=== PATIENT | female | born 1975 | race Caucasian/White ===

== ENCOUNTER 2019-02-01 17:21 | Outpatient (CLI) | payer SELFPAY | END 2019-02-01 17:22 | disposition critical access hospital (66) | LOC: EMS 17:21 | PROVIDERS: ATTEND Surgery | DX: S89.92XA Unspecified injury of left lower leg, initial encounter (principal); W01.0XXA Fall on same level from slipping, tripping and stumbling without subsequent striking against object, initial encounter | CPT/HCPCS: A0425; A0429 ==

== ENCOUNTER 2019-02-01 17:25 | Emergency (ER) | payer OTHER ==
[2019-02-01 17:34] VITALS: BP 166/83
[2019-02-01] MEDS ORDERED: HYDROmorphone 1 MG/ML CARPUJECT IM STA ×2 (18:22→18:55)
--- NOTE | 2019-02-01 18:24 | ED Physician Documentation ---
PD HPI LOWER EXT INJURY - Stated complaint Stated Complaint: R KNEE PX - Chief complaint Chief Complaint: Ext Problem - History obtained from History obtained from: Patient - History of Present Illness PD HPI LOW EXT INJURY LOCATION: Right (43-year-old woman was finishing up at work, walking and tripped and impacted directly onto the knee on the floor. She has not tried to walk or bear weight. Pain is severe. No other injuries. No possibility of .) Review of Systems Constitutional: reports: Reviewed and negative Throat: reports: Reviewed and negative Cardiac: reports: Reviewed and negative Respiratory: reports: Reviewed and negative PD PAST MEDICAL HISTORY - Past Medical History Past Medical History: Yes Endocrine/Autoimmune: HyPERthyroidism GI: GERD - Present Medications Home Medications: Ambulatory Orders Medication Instructions Recorded Confirmed Oxycodone HCl/Acetaminophen 1 - 2 each PO Q6H PRN #14 tablet 02/01/19 [Percocet 5-325 mg Tablet] - Allergies Allergies/Adverse Reactions: Allergies Allergy/AdvReac Type Severity Reaction Status Date / Time cephalexin [From Keflex] Allergy Unknown Verified 02/01/19 17:36 Penicillins Allergy Anaphylaxis Verified 02/01/19 17:36 - Social History Does the pt smoke?: No Smoking Status: Never smoker Does the pt drink ETOH?: No Does the pt have substance abuse?: No - Immunizations Immunizations are current?: Yes - POLST Patient has POLST: No PD ED PE NORMAL - Vitals Vital signs reviewed: Yes - General General: Alert and oriented X 3, No acute distress - Extremities Extremities: Other (The right knee is significantly severely tender over both sides and especially the tibial plateau. Unable to check ligamentous testing on initial evaluation due to severe pain.) - Neuro Neuro: Alert and oriented X 3, Normal speech Results - Vitals Vitals: Vital Signs - 24 hr 02/01/19 17:30 Temperature 36.6 C Heart Rate 80 Respiratory 18 Rate Blood Pressure 166/83 H O2 Saturation 99 Oxygen O2 Source Room air - Rads (name of study) Xray R knee Radiology: EMP read contemporaneously (neg) CT R knee Radiology: See rad report PD MEDICAL DECISION MAKING - ED course ED course: Given the level of pain and morbid obesity I had a high suspicion for occult fracture despite the negative x-rays and a CT was performed With only evidence of a contusion. She was placed in a knee splint, advised to follow-up with Dr. Abreu if not better quickly. Departure - Departure Disposition: 01 Home, Self Care Clinical Impression: Contusion of right knee Qualifiers: Encounter type: initial encounter Qualified Code(s): S80.01XA - Contusion of right knee, initial encounter Condition: Good Record reviewed to determine appropriate education?: Yes Instructions: ED Sprain Knee Collateral Ligaments Follow-Up: Jaime Abreu MD [Provider Admit Priv/Credential] - Prescriptions: Oxycodone HCl/Acetaminophen [Percocet 5-325 mg Tablet] 1 - 2 each PO Q6H PRN #14 tablet PRN Reason: pain Comments: If not better in a week, follow-up with the sports medicine orthopedic surgeon for follow-up. You can wear the splint as needed when up and around but you do not need to wear it in bed or while showering. Do not drink or drive while taking prescription pain medication. You can take ibuprofen in addition to the oxycodone. Forms: Activity restrictions
--- NOTE | 2019-02-01 18:30 | XRAY Report ---
Reason: fall, R knee pain Procedure Date: 02/01/2019 Accession Number: [id number] / [id number] Procedure: XR - Knee 4 View RT CPT Code: FULL RESULT: EXAM: RIGHT KNEE RADIOGRAPHY EXAM DATE: 02/01/2019 05:56 PM. CLINICAL HISTORY: Fall, R knee pain. COMPARISON: None. TECHNIQUE: 4 views. FINDINGS: Bones: Normal. No fractures or bone lesions. Joints: Early patellar articular surface spurring. Medial greater than lateral knee joint spurring No effusion. No subluxations. Soft Tissues: Unremarkable IMPRESSION: Early degenerative change right knee without superimposed fracture, acute malalignment, or effusion. RADIA
[2019-02-01] MEDS ORDERED: KETOROLAC 60 MG/2 ML VIAL IM STA (18:55)
--- NOTE | 2019-02-01 19:25 | CT Report ---
Reason: knee inj, ? tibial plateau frx Procedure Date: 02/01/2019 Accession Number: [id number] / [id number] Procedure: CT - LOWER EXTREMITY WO - RT CPT Code: FULL RESULT: EXAM: RIGHT KNEE CT WITHOUT CONTRAST EXAM DATE: 02/01/2019 06:46 PM. CLINICAL HISTORY: Knee inj, ? Tibial plateau frx. Ground-level fall with right knee pain and swelling today. COMPARISON: KNEE 4 VIEW RT 02/01/2019 5:38 PM. TECHNIQUE: Thin-section axial images were acquired of the knee without contrast. Post-processing: Coronal and sagittal reformats. Other: None. In accordance with CT protocol optimization, one or more of the following dose reduction techniques were utilized for this exam: automated exposure control, adjustment of mA and/or KV based on patient size, or use of iterative reconstructive technique. FINDINGS: Bones: Mild spurring medial femoral condyle and medial tibial plateau. Moderate spurring lateral femoral condyle. Moderate spurring lateral patellar facet. Bony remodeling with some cortical cystic changes lateral patellar facet. Joints: Narrowing medial tibiofemoral compartment. Negative for lipohemarthrosis. Negative for increased joint fluid. Moderate narrowing lateral patellofemoral compartment. Musculature: Normal. No fatty atrophy. Other: The ACL is intact. The posterior cruciate ligaments without disruption. Medial collateral ligament and fibular collateral ligament are negative for disruption. Subcutaneous fluid or edema superficial to the patellar tendon and anterior proximal leg (sees image 169 series 3). Probable pretibial contusion or edema. IMPRESSION: 1. Negative for acute right knee fracture. 2. Moderate osteoarthritis lateral patellofemoral compartment. 3. Moderate osteoarthritis medial tibiofemoral compartment. Kellgren Keith grade 3. 4. Anterior proximal leg subcutaneous contusion or edema. RADIA
== END 2019-02-01 19:44 | disposition home or self-care (01) ==
LOC: EDUNIT# → ED 17:25
DX: S80.01XA Contusion of right knee, initial encounter (principal); W01.0XXA Fall on same level from slipping, tripping and stumbling without subsequent striking against object, initial encounter; Y93.01 Activity, walking, marching and hiking; Y99.0 Civilian activity done for income or pay; M17.11 Unilateral primary osteoarthritis, right knee; E66.01 Morbid (severe) obesity due to excess calories; Z68.41 Body mass index [BMI] 40.0-44.9, adult
CPT/HCPCS: 1040M; 73564; 73700; 96372; 99283; 99284; J1170

== ENCOUNTER 2019-05-23 07:54 | Outpatient (CLI) | payer BC ==
[2019-05-23 08:26] LABS: BASOPHILS % (AUTO) 0.6 %; EOSINOPHILS # (AUTO) 0.3 10^3/uL (0.0-0.7); EOSINOPHILS % (AUTO) 3.8 %; HGB - HEMOGLOBIN 13.6 g/dL (12.0-16.0); LYMPHOCYTES # (AUTO) 2.1 10^3/uL (1.5-3.5); LYMPHOCYTES % (AUTO) 32.3 %; MEAN CORPUSCULAR HEMOGLOBIN 28.8 pg (27.0-31.0); MEAN CORPUSCULAR HGB CONC 31.1 g/dL (32.0-36.0); MEAN CORPUSCULAR VOLUME 92.6 fL (81.0-99.0); MEAN PLATELET VOLUME 10.8 fL (7.9-10.8); MONOCYTES # (AUTO) 0.4 10^3/uL (0.0-1.0); MONOCYTES % (AUTO) 5.9 %; NEUTROPHILS # (AUTO) 3.7 10^3/uL (1.5-6.6); NEUTROPHILS % (AUTO) 57.1 %; PLT - PLATELET COUNT 237 10^3/uL (130-450); RED BLOOD COUNT 4.73 10^6/uL (4.20-5.40); RED CELL DISTRIBUTION WIDTH 14.5 % (12.0-15.0); WHITE BLOOD COUNT 6.6 x10^3/uL (4.8-10.8)
[2019-05-23 08:38] LABS: ALBUMIN 4.2 g/dL (3.2-5.5); ALBUMIN/GLOBULIN RATIO 1.3 (1.0-2.2); BILIRUBIN,TOTAL 0.5 mg/dL (0.2-1.0); CALCIUM 8.8 mg/dL (8.5-10.3); CREATININE 0.7 mg/dL (0.4-1.0); TOTAL PROTEIN 7.5 g/dL (6.7-8.2)
[2019-05-23 08:51] LABS: THYROID STIMULATING HORMONE 30.67 uIU/mL (0.34-5.60)
[2019-05-23 08:53] LABS: FREE T4 (FREE THYROXINE) 0.63 ng/dL (0.58-1.64)
[2019-05-23 08:55] LABS: FERRITIN 12.2 ng/mL (11.0-306.8)
[2019-05-23 14:24] LABS: HB2 TOTAL 13.5 g/dL; HEMOGLOBIN A1C 0.71 g/dL
[2019-05-25 12:32] LABS: HSV 1 IGG TYPE SPECIFIC AB <0.90 index; HSV 2 IGG TYPE SPECIFIC AB <0.90 index
== END 2019-05-23 07:55 | disposition home or self-care (01) ==
LOC: LAB 07:54
PROVIDERS: ATTEND Nurse Practitioner
DX: D64.9 Anemia, unspecified (principal); K21.9 Gastro-esophageal reflux disease without esophagitis; E05.90 Thyrotoxicosis, unspecified without thyrotoxic crisis or storm; R73.01 Impaired fasting glucose; Z11.3 Encounter for screening for infections with a predominantly sexual mode of transmission
CPT/HCPCS: 36415; 80053; 81599; 82728; 83036; 83540; 84439; 84443; 84466; 84481; 85025; 86695; 86696

== ENCOUNTER 2019-06-07 17:14 | Outpatient (CLI) | payer BC ==
--- NOTE | 2019-06-09 06:07 | Ultrasound Report ---
Reason: HYPERTHYROIDISM Procedure Date: 06/07/2019 Accession Number: [id number] / [id number] Procedure: US - Head or Neck Soft Tissue CPT Code: Final Report FULL RESULT: EXAM: THYROID ULTRASOUND EXAM DATE: 06/07/2019 05:50 PM. CLINICAL HISTORY: HYPERTHYROIDISM. COMPARISON: None. TECHNIQUE: Real time sonographic imaging of the thyroid was performed by the regional flatbed truck driver. Multiple account services representative static images were saved for review. FINDINGS: THYROID GLAND: Right Lobe: 4.7 x 1.8 x 2.2 cm, volume 9.6 cc. Diffusely heterogeneous without increased color signal/vascularity Right Lobe Nodules: None. Left Lobe: 4.5 x 1.7 x 2.0 cm, volume 7.8 cc. Diffusely heterogeneous without increased color signal/vascularity Left Lobe Nodules: Hyperechoic solid nodule in the inferior pole measures 0.5 x 0.5 x 0.6 cm, low suspicion sonographic pattern Isthmus: 1 cm AP. Isthmic Nodules: None. LYMPH NODES: No adenopathy demonstrated in the central or lateral compartment. OTHER: None. IMPRESSION: 1. Diffusely heterogeneous thyroid, suspect sequela of thyroiditis. 2. Low suspicion sonographic pattern nodule in the left thyroid lobe. One to two-year follow-up can be obtained. Management recommendations are based on 2015 [place] [employer] Management Guidelines for Adult Patients with Thyroid Nodules and Differentiated Thyroid Cancer. RADIA
== END 2019-06-07 17:15 | disposition home or self-care (01) ==
LOC: DI 17:14
PROVIDERS: ATTEND Nurse Practitioner
DX: E05.90 Thyrotoxicosis, unspecified without thyrotoxic crisis or storm (principal); E04.1 Nontoxic single thyroid nodule
CPT/HCPCS: 76536

== ENCOUNTER 2019-06-07 17:58 | Emergency (ER) | payer BC ==
[2019-06-07] MEDS ORDERED: diazePAM INJ 5 MG/ML SYRINGE IM STA (18:41)
[2019-06-07] MEDS ORDERED: DEXAMETHASONE 10 MG/ML VIAL IM STA (18:41)
[2019-06-07] MEDS ORDERED: KETOROLAC 60 MG/2 ML VIAL IM STA (18:41)
--- NOTE | 2019-06-07 18:49 | ED Physician Documentation ---
History of Present Illness - Stated complaint Stated Complaint: SHAKING,TINGLING,DIZZY - Chief complaint Chief Complaint: General - History obtained from History obtained from: Patient - History of Present Illness Timing: Today Pain level max: 7 Pain level now: 6 - Additonal information Additional information: 43-year-old female presents to the emergency department stating that she was getting an ultrasound of her thyroid and had her neck in an odd position on the pillow. She states that when she sat up she felt a sharp pain in the side of her neck and pain radiating down the left arm. She feels like the left arm is not working quite as well as usual either. States pain with any movement of her neck. No history of neck or back pain. No chest pain. No shortness of breath. No headache. Review of Systems Constitutional: denies: Fever, Chills Throat: denies: Sore throat Cardiac: denies: Chest pain / pressure Respiratory: denies: Cough GI: denies: Vomiting, Diarrhea Skin: denies: Rash Musculoskeletal: denies: Back pain Neurologic: denies: Confused, Altered mental status, LOC PD PAST MEDICAL HISTORY - Past Medical History Past Medical History: Yes Endocrine/Autoimmune: HyPERthyroidism GI: GERD - Present Medications Home Medications: Ambulatory Orders Medication Instructions Recorded Confirmed Oxycodone HCl/Acetaminophen 1 - 2 each PO Q6H PRN #14 tablet 02/01/19 [Percocet 5-325 mg Tablet] Meloxicam [Mobic] 15 mg PO DAILY PRN #20 tablet 06/07/19 diazePAM [Valium] 5 - 10 mg PO TID PRN #15 tablet 06/07/19 predniSONE [Deltasone] 10 mg PO [id number] #42 tab 06/07/19 - Allergies Allergies/Adverse Reactions: Allergies Allergy/AdvReac Type Severity Reaction Status Date / Time cephalexin [From Keflex] Allergy Unknown Verified 06/07/19 18:18 Penicillins Allergy Anaphylaxis Verified 06/07/19 18:18 - Social History Does the pt smoke?: No Smoking Status: Never smoker Does the pt drink ETOH?: No Does the pt have substance abuse?: No - Immunizations Immunizations are current?: Yes - POLST Patient has POLST: No PD ED PE NORMAL - Vitals Vital signs reviewed: Yes - General General: Alert and oriented X 3, No acute distress, Well developed/nourished - HEENT HEENT: PERRL, Moist mucous membranes - Neck Neck: Supple, no meningeal sign, Other (No midline tenderness to palpation. Paracervical spasm, left side of the neck. Reproduces her pain. Limited range of motion secondary to pain. She is holding her head straight and forward.) - Cardiac Cardiac: RRR, Strong equal pulses - Respiratory Respiratory: No respiratory distress, Clear bilaterally - Abdomen Abdomen: Soft, Non tender, Non distended - Derm Derm: Warm and dry - Extremities Extremities: No deformity - Neuro Neuro: Alert and oriented X 3 - Psych Psych: Normal mood, Normal affect Results - Vitals Vitals: Vital Signs - 24 hr 06/07/19 06/07/19 06/07/19 18:06 19:14 19:20 Temperature 36.8 C Heart Rate 77 71 Respiratory 18 16 17 Rate Blood Pressure 183/104 H 162/80 H O2 Saturation 97 99 06/07/19 06/07/19 19:24 19:25 Temperature 36.4 C L Heart Rate Respiratory 16 Rate Blood Pressure O2 Saturation Oxygen O2 Source Room air PD MEDICAL DECISION MAKING - ED course Complexity details: re-evaluated patient (After medication she is moving the neck well and ambulating well. Using the left arm freely.), considered differential, d/w patient, d/w family ED course: Patient with cervical muscle spasm. No signs of stroke. No evidence of carotid dissection. No bruits. Improved with Valium, Toradol and Decadron. Will encourage continued range of motion of the neck. Will place on medications for home. Patient counseled regarding signs and symptoms for which I believe and urgent re-evaluation would be necessary. Patient with good understanding of and agreement to plan and is comfortable going home at this time This document was made in part using voice recognition software. While efforts are made to proofread this document, sound alike and grammatical errors may occur. Departure - Departure Disposition: 01 Home, Self Care Clinical Impression: Cervical radiculopathy, Neck muscle spasm Condition: Good Instructions: ED Spasm Neck No Injury, ED Cervical Radiculopathy Follow-Up: Le Upton ARNP, SWING RIDE OPERATOR-C [Primary Care Provider] - Within 1 week Prescriptions: diazePAM [Valium] 5 - 10 mg PO TID PRN #15 tablet PRN Reason: Spasms Meloxicam [Mobic] 15 mg PO DAILY PRN #20 tablet PRN Reason: pain predniSONE [Deltasone] 10 mg PO [id number] #42 tab Comments: Return if you worsen. Follow-up with your doctor for further care. Continue to gently range her neck at home. This should continue to improve over the next 24 hours. Discharge Date/Time: 06/07/19 19:26
[2019-06-07 19:14] VITALS: BP 162/80
== END 2019-06-07 19:26 | disposition home or self-care (01) ==
LOC: ED 17:58
DX: M54.12 Radiculopathy, cervical region (principal); M62.838 Other muscle spasm; E05.90 Thyrotoxicosis, unspecified without thyrotoxic crisis or storm; E04.1 Nontoxic single thyroid nodule
CPT/HCPCS: 76536; 96372; 99283; 99284

== ENCOUNTER 2019-07-20 10:56 | Outpatient (CLI) | payer BC ==
[2019-07-20 12:17] LABS: ABSOLUTE RETICS # AUTO 0.077 10^6/uL (0.020-0.110); BASOPHILS # (AUTO) 0.1 10^3/uL (0.0-0.1); BASOPHILS % (AUTO) 0.6 %; EOSINOPHILS # (AUTO) 0.2 10^3/uL (0.0-0.7); EOSINOPHILS % (AUTO) 2.6 %; HGB - HEMOGLOBIN 14.1 g/dL (12.0-16.0); LYMPHOCYTES # (AUTO) 2.8 10^3/uL (1.5-3.5); LYMPHOCYTES % (AUTO) 33.2 %; MEAN CORPUSCULAR HEMOGLOBIN 29.4 pg (27.0-31.0); MEAN CORPUSCULAR HGB CONC 31.2 g/dL (32.0-36.0); MEAN CORPUSCULAR VOLUME 94.4 fL (81.0-99.0); MEAN PLATELET VOLUME 10.9 fL (7.9-10.8); MONOCYTES # (AUTO) 0.5 10^3/uL (0.0-1.0); MONOCYTES % (AUTO) 5.7 %; NEUTROPHILS # (AUTO) 4.8 10^3/uL (1.5-6.6); NEUTROPHILS % (AUTO) 57.2 %; PLT - PLATELET COUNT 282 10^3/uL (130-450); RED BLOOD COUNT 4.79 10^6/uL (4.20-5.40); RED CELL DISTRIBUTION WIDTH 14.8 % (12.0-15.0); WHITE BLOOD COUNT 8.3 x10^3/uL (4.8-10.8)
[2019-07-20 12:48] LABS: % IRON SATURATION 13 % (20-50); IRON 58 ug/dL (28-170); TOTAL IRON BINDING CAPACITY 448 ug/dL (250-450); TRANSFERRIN 320 mg/dL (192-382)
[2019-07-20 12:57] LABS: FREE T3 2.34 pg/mL (2.5-3.9); FREE T4 (FREE THYROXINE) 0.35 ng/dL (0.58-1.64)
[2019-07-20 14:21] LABS: THYROID STIMULATING HORMONE 66.18 uIU/mL (0.34-5.60)
== END 2019-07-20 23:59 | disposition home or self-care (01) ==
LOC: LAB.WCP 10:56
PROVIDERS: ATTEND Nurse Practitioner
DX: D64.9 Anemia, unspecified (principal); E05.90 Thyrotoxicosis, unspecified without thyrotoxic crisis or storm
CPT/HCPCS: 36415; 83540; 84439; 84443; 84466; 84481; 85025; 85045

== ENCOUNTER 2019-10-02 12:00 | Outpatient (CLI) | payer BC ==
[2019-10-02 18:37] LABS: HB2 TOTAL 13.6 g/dL; HEMOGLOBIN A1C 0.72 g/dL
[2019-10-02 18:39] LABS: CALCIUM 8.7 mg/dL (8.5-10.3); CREATININE 0.7 mg/dL (0.4-1.0)
[2019-10-02 18:47] LABS: THYROID STIMULATING HORMONE 16.9 uIU/mL (0.34-5.60)
[2019-10-02 18:48] LABS: FREE T3 2.45 pg/mL (2.5-3.9)
[2019-10-02 18:49] LABS: FREE T4 (FREE THYROXINE) 0.67 ng/dL (0.58-1.64)
== END 2019-10-02 23:59 | disposition home or self-care (01) ==
LOC: LAB.WCP 12:00
PROVIDERS: ATTEND Nurse Practitioner
DX: E11.9 Type 2 diabetes mellitus without complications (principal); E03.9 Hypothyroidism, unspecified
CPT/HCPCS: 36415; 80048; 82043; 83036; 84439; 84443; 84481

== ENCOUNTER 2019-11-21 19:03 | Emergency (ER) | payer BC ==
[2019-11-21] MEDS ORDERED: SODIUM CHLORIDE 0.9% 1,000 ML IV STA (19:15)
[2019-11-21 19:27] LABS: BASOPHILS # (AUTO) 0.1 10^3/uL (0.0-0.1); BASOPHILS % (AUTO) 0.4 %; EOSINOPHILS # (AUTO) 0.3 10^3/uL (0.0-0.7); EOSINOPHILS % (AUTO) 2.2 %; HGB - HEMOGLOBIN 13.3 g/dL (12.0-16.0); LYMPHOCYTES # (AUTO) 2.1 10^3/uL (1.5-3.5); MEAN CORPUSCULAR HEMOGLOBIN 30.3 pg (27.0-31.0); MEAN CORPUSCULAR HGB CONC 32.4 g/dL (32.0-36.0); MEAN CORPUSCULAR VOLUME 93.4 fL (81.0-99.0); MEAN PLATELET VOLUME 11.3 fL (7.9-10.8); MONOCYTES # (AUTO) 0.8 10^3/uL (0.0-1.0); MONOCYTES % (AUTO) 5.9 %; NEUTROPHILS # (AUTO) 9.8 10^3/uL (1.5-6.6); PLT - PLATELET COUNT 232 10^3/uL (130-450); RED BLOOD COUNT 4.39 10^6/uL (4.20-5.40); RED CELL DISTRIBUTION WIDTH 13.5 % (12.0-15.0)
[2019-11-21 19:40] LABS: ALBUMIN 4.3 g/dL (3.2-5.5); ALBUMIN/GLOBULIN RATIO 1.3 (1.0-2.2); BILIRUBIN,TOTAL 0.3 mg/dL (0.2-1.0); CALCIUM 8.9 mg/dL (8.5-10.3); CREATININE 0.8 mg/dL (0.4-1.0); TOTAL PROTEIN 7.7 g/dL (6.7-8.2)
--- NOTE | 2019-11-21 19:49 | ED Physician Documentation ---
History of Present Illness - Stated complaint Stated Complaint: ABD PX, NAUSEA - Chief complaint Chief Complaint: Abd Pain - History obtained from History obtained from: Patient, Family - Additonal information Additional information: 44-year-old female presents to the emergency department for evaluation of left- sided abdominal pain that began this afternoon. Reports that she has a longstanding history of diverticulitis and has had in the past abscess formation associated with it. Yesterday and this a.m. she reports that she had bloody diarrhea. However this afternoon after eating lunch she began to develop diffuse left-sided belly pain. Some nausea no vomiting. Subjective fevers and chills. Denies urianry symptoms. Denies CP/SOB She last received treatment for diverticulitis approximately 6 months ago through her primary care provider. She has received no antibiotics for at least 3 months Review of Systems Constitutional: reports: Fever, Chills. denies: Myalgias, Fatigue Cardiac: denies: Chest pain / pressure, Palpitations Respiratory: denies: Dyspnea, Cough GI: reports: Abdominal Pain, Nausea, Diarrhea, Bloody / black stool. denies: Vomiting, Constipation : denies: Dysuria, Frequency, Hesitancy, Unable to Void Skin: denies: Rash, Lesions Musculoskeletal: denies: Neck pain, Back pain, Extremity pain Neurologic: denies: Generalized weakness, Focal weakness, Numbness Psychiatric: denies: Depressed PD PAST MEDICAL HISTORY - Past Medical History Past Medical History: Yes Cardiovascular: Hypertension Endocrine/Autoimmune: HyPERthyroidism GI: GERD, Diverticulitis - Present Medications Home Medications: Ambulatory Orders Medication Instructions Recorded Confirmed Oxycodone HCl/Acetaminophen 1 - 2 each PO Q6H PRN #14 tablet 02/01/19 [Percocet 5-325 mg Tablet] Meloxicam [Mobic] 15 mg PO DAILY PRN #20 tablet 06/07/19 diazePAM [Valium] 5 - 10 mg PO TID PRN #15 tablet 06/07/19 predniSONE [Deltasone] 10 mg PO [id number] #42 tab 06/07/19 Ciprofloxacin HCl [Cipro] 500 mg PO BID #20 tablet 11/21/19 Hydrocodone/Acetaminophen [[place] 1 each PO BID PRN #5 tablet 11/21/19 5-325 Tablet] Prochlorperazine [Compazine] 5 mg PO Q6H #15 tablet 11/21/19 metroNIDAZOLE [Flagyl] 500 mg PO BID #20 tablet 11/21/19 - Allergies Allergies/Adverse Reactions: Allergies Allergy/AdvReac Type Severity Reaction Status Date / Time cephalexin [From Keflex] Allergy Unknown Verified 06/07/19 18:18 Penicillins Allergy Anaphylaxis Verified 06/07/19 18:18 - Social History Does the pt smoke?: No Smoking Status: Never smoker Does the pt drink ETOH?: No Does the pt have substance abuse?: No - Immunizations Immunizations are current?: Yes - POLST Patient has POLST: No PD ED PE NORMAL - General General: Alert and oriented X 3, No acute distress, Other (obese) - HEENT HEENT: PERRL, EOMI - Cardiac Cardiac: RRR, No murmur - Respiratory Respiratory: No respiratory distress - Abdomen Abdomen: Normal bowel sounds, Soft, Other (diffusely tendern LUQ, LLQ. + rebound) - Derm Derm: Normal color, Warm and dry, No rash - Extremities Extremities: No tenderness to palpate - Neuro Neuro: Alert and oriented X 3, video library assistant 2-12 intact Eye Opening: Spontaneous Motor: Obeys Commands Verbal: Oriented GCS Score: 15 Results - Vitals Vitals: Vital Signs - 24 hr 11/21/19 11/21/19 11/21/19 19:09 19:12 20:25 Temperature 36.8 C Heart Rate 96 89 92 Respiratory 18 20 16 Rate Blood Pressure 177/77 H 166/142 H 171/97 H O2 Saturation 98 98 97 Oxygen O2 Source Room air - Labs Labs: Laboratory Tests 11/21/19 11/21/19 11/21/19 15:50 19:20 19:20 WBC 13.0 H RBC 4.39 Hgb 13.3 Hct 41.0 MCV 93.4 MCH 30.3 MCHC 32.4 RDW 13.5 Plt Count 232 MPV 11.3 H Neut # (Auto) 9.8 H Lymph # (Auto) 2.1 [place] # (Auto) 0.8 Eos # (Auto) 0.3 Baso # (Auto) 0.1 Absolute Nucleated RBC 0.00 Nucleated RBC % 0.0 Sodium 135 Potassium 4.0 Chloride 101 Carbon Dioxide 27 Anion Gap 7.0 BUN 15 Creatinine 0.8 Estimated GFR (MDRD) 78 L Glucose 140 H Calcium 8.9 Total Bilirubin 0.3 AST 19 ALT 26 Alkaline Phosphatase 82 Total Protein 7.7 Albumin 4.3 Globulin 3.4 Albumin/Globulin Ratio 1.3 Lipase 19 L Urine Color YELLOW Urine Clarity CLEAR Urine pH 7.0 Ur Specific [place] 1.020 Urine Protein NEGATIVE Urine Glucose (UA) NEGATIVE Urine Ketones NEGATIVE Urine Occult Blood NEGATIVE Urine Nitrite NEGATIVE Urine Bilirubin NEGATIVE Urine Urobilinogen 0.2 (NORMAL) Ur Leukocyte Esterase NEGATIVE Ur Microscopic Review NOT INDICATED Urine Culture Comments NOT INDICATED Urine HCG, Qual NEGATIVE - Rads (name of study) CT abd Radiology: Final report received (Sigmoid diverticulosis. There is focal thickening and stranding in the sigmoid colon consistent with acute diverticulitis. Recommend follow-up CT or colonoscopy after adequate treatment as colonic mass could have similar CT appearance. ), EMP read contemporaneously PD MEDICAL DECISION MAKING - ED course Complexity details: reviewed results, re-evaluated patient, considered differential, d/w patient, d/w family ED course: 44-year-old female presents to the emergency department with reported bloody diarrhea and acute onset left-sided belly pain. She does have a history of diverticulitis and previous abscess formation in the past. - On initial laboratory findings there are no findings consistent with acute urinary tract infection. She is noted to have a mild leukocytosis of 13,000 without any left shift. - CT scan of the abdomen was completed and showed slight sigmoid diverticulosis. There was thickening and stranding in the sigmoid colon consistent with acute diverticulitis. No abscess formation was seen. - Given that this is a recurrent bout of diverticulitis and she is reporting bloody stools we will proceed with antibiotics today. She is given her first dose of Flagyl and Cipro in the emergency department and she will fill the remaining doses tomorrow. I have advised very close follow-up with her primary care doctor. She should be referred for colonoscopy and follow-up - Emergent return precautions were discussed for concerns of fevers, worsening pain, worsening bloody stools. Departure - Departure Disposition: 01 Home, Self Care Clinical Impression: Diverticulitis large intestine Qualifiers: Diverticulitis bleeding: with bleeding Diverticulitis complication: without perforation or abscess Qualified Code(s): K57.33 - Diverticulitis of large intestine without perforation or abscess with bleeding Condition: Stable Record reviewed to determine appropriate education?: Yes Instructions: ED Diverticulitis Follow-Up: Le Upton ARNP, PSYCHOLOGY CLINICIAN-C [Primary Care Provider] - Prescriptions: Ciprofloxacin HCl [Cipro] 500 mg PO BID #20 tablet Prochlorperazine [Compazine] 5 mg PO Q6H #15 tablet metroNIDAZOLE [Flagyl] 500 mg PO BID #20 tablet Hydrocodone/Acetaminophen [[place] 5-325 Tablet] 1 each PO BID PRN #5 tablet PRN Reason: Pain Comments: Jan the CT scan does show that you have diverticulitis. Because of your age and multiple occurrences of this in the past you should at this point get a colonoscopy once this flare is over to ensure that there is nothing more worrisome occurring in your colon. I have given you your first dose of antibiotics here in the emergency department. You are to fill the prescription tomorrow and begin taking twice a day for the next 10 days Have prescribed Compazine to help with nausea. I have also prescribed a very limited number of [place] to help with pain. I do recommend that you take ibuprofen 600 mg with food 3 times a day as needed for pain Please return to the emergency department if you are having worsening symptoms, bloody diarrhea worsens, you have fevers or any other concerns
[2019-11-21 19:58] LABS: BILIRUBIN,URINE NEGATIVE (NEGATIVE); GLUCOSE, URINE (UA) NEGATIVE (NEGATIVE); KETONES,URINE (UA) NEGATIVE (NEGATIVE); LEUKOCYTE ESTERASE, URINE NEGATIVE (NEGATIVE); NITRITE,URINE NEGATIVE (NEGATIVE); OCCULT BLOOD,URINE NEGATIVE (NEGATIVE); PROTEIN,URINE NEGATIVE (NEGATIVE); UROBILINOGEN,URINE 0.2 (NORMAL) E.U./dL (NORMAL)
[2019-11-21] MEDS ORDERED: IOVERSOL 320 100 ML VIAL IVP ONE ×2 (20:07→20:29)
[2019-11-21 20:12] LABS: CLARITY,URINE CLEAR (CLEAR); HCG UR QUAL NEGATIVE
[2019-11-21] MEDS ORDERED: HYDROmorphone 1 MG/ML CARPUJECT IVP STA (20:25)
--- NOTE | 2019-11-21 21:00 | CT Report ---
PROCEDURE: Abdomen/Pelvis W INDICATIONS: bloody diarrhea; r/o diverticulitis with abscess CONTRAST: IV CONTRAST: Optiray 320 ml: 100 PO CONTRAST: *NO PO CONTRAST TECHNIQUE: After the administration of oral and intravenous contrast, 5 mm thick sections acquired from the diap hragms to the symphysis. 5 mm thick coronal and sagittal reformats were acquired. For radiation dos e reduction, the following was used: automated exposure control, adjustment of mA and/or kV accordin g to patient size. COMPARISON: None. FINDINGS: Image quality: Excellent. ABDOMEN: Lung bases: Mild infiltrate in the lingula. Right middle lobe atelectasis. Heart size is normal. Solid organs: There is hepatic steatosis. Liver and spleen are normal in size and enhancement. Gall bladder is surgically absent. Biliary system is non dilated. Pancreas enhances normally. No adrena l nodules. Kidneys demonstrate normal size and enhancement, without hydronephrosis. Peritoneum and bowel: There are scattered colonic diverticula. Focal stranding and thickening in sig moid colon consistent with acute diverticulitis. Bowel loops demonstrate normal wall thickness and ca liber. There is a small amount of free fluid. No free air. Nodes and vessels: Mild treatment of periaortic lymph node measuring up to 1.2 x 1.9 cm. Aorta and inferior vena cava are normal in size. Miscellaneous: No ventral hernias. PELVIS: Genitourinary: Bladder wall thickness is normal. Uterus and ovaries are normal. Miscellaneous: No inguinal hernias or adenopathy. Bones: No suspicious bony lesions. No vertebral body compression fractures. IMPRESSION: 1. Sigmoid diverticulosis. There is focal thickening and stranding in sigmoid colon consistent with a cute diverticulitis. Recommend follow-up CT or colonoscopy after adequate treatment as colonic mass c ould have similar CT appearance. 2. Mild retroperitoneal lymphadenopathy with a slightly enlarged left para-aortic lymph node. This fi nding is nonspecific and may be reactive. This lymph node can be followed on follow-up CT. 3. Hepatic steatosis. 4. Mild infiltrate in the lingula. Reviewed by: Douglas Nixon MD on 11/21/2019 8:58 PM PDT Approved by: Douglas Nixon MD on 11/21/2019 8:58 PM PDT Station ID: [id number]
[2019-11-21] MEDS ORDERED: CIPROFLOXACIN 250 MG TABLET PO STA (21:01)
[2019-11-21] MEDS ORDERED: metroNIDAZOLE 250 MG TABLET PO STA (21:01)
[2019-11-21] MEDS ORDERED: ONDANSETRON 4 MG/2 ML VIAL IVP STA (21:01)
[2019-11-21 21:08] VITALS: BP 164/92
== END 2019-11-21 21:19 | disposition home or self-care (01) ==
LOC: ED 19:03
DX: K57.33 Diverticulitis of large intestine without perforation or abscess with bleeding (principal); I10 Essential (primary) hypertension
CPT/HCPCS: 36415; 74177; 80053; 81003; 81025; 83690; 85025; 96361; 96374; 96375; 99284; A9270; J1170; Q9967; 81001; 87086

== ENCOUNTER 2019-12-07 08:46 | Outpatient (CLI) | payer BC ==
--- NOTE | 2019-12-08 09:09 | Mammography Report ---
BILATERAL DIGITAL SCREENING MAMMOGRAM 3D/2D: 12/07/2019 CLINICAL: Routine screening. Baseline exam. No prior exams were available for comparison. The tissue of both breasts is predominantly fatty. No significant masses, calcifications, or other findings are seen in either breast. IMPRESSION: NEGATIVE There is no mammographic evidence of malignancy. A 1 year screening mammogram is recommended. This exam was interpreted at Station ID: [id number]. NOTE: For mammograms, a report in lay terms will be sent to the patient. Approximately 15% of breast malignancies will not be visualized mammographically. In the management of a palpable breast mass, a negative mammogram must not discourage biopsy of a clinically suspicious lesion. Electronically Signed By: Tez warren/penrad:12/07/2019 11:27:31 ACR BI-RADS Category 1: Negative 3341F PARENCHYMAL PATTERN: (F) - The breast(s) demonstrate(s) diffuse fatty replacement. BI-RADS CATEGORY: (1) - 1 RECOMMENDATION: (ANNUAL) - Recommend routine annual screening mammography. [id number] 1 year screening LATERALITY: (B)
== END 2019-12-07 08:47 | disposition home or self-care (01) ==
LOC: DI 08:46
DX: Z12.31 Encounter for screening mammogram for malignant neoplasm of breast (principal)
CPT/HCPCS: 77063; 77067

== ENCOUNTER 2019-12-23 08:39 | Outpatient (CLI) | payer BC ==
[2019-12-23] MEDS ORDERED: IOVERSOL 320 50 ML VIAL ONE (08:52)
[2019-12-23] MEDS ORDERED: IOVERSOL 320 100 ML VIAL IVP ONE ×2 (08:52→10:10)
[2019-12-23] MEDS ORDERED: IOVERSOL 320 50 ML VIAL PO ONE (10:10)
--- NOTE | 2019-12-23 12:36 | CT Report ---
PROCEDURE: Abdomen/Pelvis W INDICATIONS: DIVERTICULITIS OF COLON WITH HEMORRHAGE CONTRAST: IV CONTRAST: Optiray 320 ml: 100 PO CONTRAST: Optiray 320 ml50 TECHNIQUE: After the administration of oral and intravenous contrast, 5 mm thick sections acquired from the diap hragms to the symphysis. 5 mm thick coronal and sagittal reformats were acquired. For radiation dos e reduction, the following was used: automated exposure control, adjustment of mA and/or kV accordin g to patient size. COMPARISON: CT abdomen pelvis 11/21/2019 FINDINGS: Image quality: Excellent. ABDOMEN: Lung bases: Lung bases are clear. Heart size is normal. Solid organs: Liver and spleen are normal in size and enhancement. Gallbladder has been removed Bi liary system is non dilated. Pancreas enhances normally. No adrenal nodules. Kidneys demonstrate n ormal size and enhancement, without hydronephrosis. Peritoneum and bowel: Colonic diverticula are present. There is a focal area of proximal sigmoid thic kening with surrounding inflammatory change. No perforation or abscess. The fluid or free air.. Nodes and vessels: Unchanged appearance of mildly prominent retroperitoneal lymph nodes. Aorta and in ferior vena cava are normal in size. Miscellaneous: No ventral hernias. PELVIS: Genitourinary: Bladder wall thickness is normal. Miscellaneous: No inguinal hernias or adenopathy. Bones: No suspicious bony lesions. No vertebral body compression fractures. IMPRESSION: 1. Focal area of sigmoid colonic thickening with inflammatory change and diverticula most suggestive of early colitis secondary to diverticulitis. No free fluid, free air or abscess is identified. Reviewed by: Noris Licea MD on 12/23/2019 12:35 PM PDT Approved by: Noris Licea MD on 12/23/2019 12:35 PM PDT Station ID: [id number]
== END 2019-12-23 08:40 | disposition home or self-care (01) ==
LOC: DI 08:39
PROVIDERS: ATTEND Surgery
DX: K57.30 Diverticulosis of large intestine without perforation or abscess without bleeding (principal); R93.3 Abnormal findings on diagnostic imaging of other parts of digestive tract
CPT/HCPCS: 74177; Q9967

== ENCOUNTER 2020-02-08 07:17 | Day surgery (SDC) | payer BC ==
[2020-02-08] MEDS ORDERED: LACTATED RINGERS 1,000 ML IV ONE ×2 (07:23→08:58)
[2020-02-08 07:57] LABS: HCG UR QUAL NEGATIVE
[2020-02-08] MEDS ORDERED: ONDANSETRON 4 MG/2 ML VIAL ONE (08:16)
[2020-02-08] MEDS ORDERED: LIDOCAINE JELLY 2% 5 ML TUBE TOP ONE (08:50)
--- NOTE | 2020-02-08 09:13 | OPERATIVE REPORT ---
Operative Report - General Procedure Date: 02/08/20 Planned Procedure: Hemorrhoid banding after colonoscopy Pre-Op Diagnosis: Bleeding internal hemorrhoids Procedure Performed: EUA with hemorrhoid banding Post Op Diagnosis: Internal hemorroids, mild proctitis - Procedure Note Primary Surgeon: Shawna Anesthesia Provider: Cameron CASTRO Anesthesia Technique: Moderate sedation Estimated Blood Loss (mL): 2 Indications: Bleeding and prolapsing internal hemorrhoids Findings: Friable mucosa consistent with mild proctitis Complications: None apparent - Other Other Information/Narrative: Colonoscopy was completed immediately prior to the banding procedure. Timeout was done at the start of the colonoscopy procedure.The patient remained sedated with monitored anesthesia care at this time. All elements of the surgical safety checklist were followed before, during, and after this procedure. The anoscope with obturator was lubricated and placed in the patient's anal canal. The obturator was removed and the slots aligned to allow access to 3 column internal hemorrhoids. The device, the TextHog multi band ligator-short shot-was placed into the anal canal. The tip of the device was placed in contact with the tissue to be treated beginning at the 4 o'clock position. The suction port was closed. A single band was deployed and the suction port released.The band was noted to be in place.We next addressed the hemorrhoid complex at 7:00.The tip of the device was placed in contact with the tissue, the suction port covered, a band deployed, the suction port released. Again we were able to see that the band was in place.We next addressed the hemorrhoid at the 11 o'clock position. This was the smallest of the 3. The tip of the device was placed in contact with the tissue, the suction port covered, a band deployed, the suction port released. Again we were able to see that the band was in place.Examination of the anal count canal revealed all [address] The anoscope was removed and the procedure concluded. The patient tolerated the procedure well. She was allowed awaken from sedation and taken to the postanesthesia care unit in good condition.
[2020-02-08 09:36] VITALS: BP 136/93
== END 2020-02-08 07:18 | disposition home or self-care (01) ==
LOC: SDS 07:17
PROVIDERS: ATTEND Surgery
DX: K57.30 Diverticulosis of large intestine without perforation or abscess without bleeding (principal); K64.8 Other hemorrhoids; K64.4 Residual hemorrhoidal skin tags; K62.89 Other specified diseases of anus and rectum; E03.9 Hypothyroidism, unspecified; D64.9 Anemia, unspecified; Z86.73 Personal history of transient ischemic attack (TIA), and cerebral infarction without residual deficits
CPT/HCPCS: 45378; 46221; 81025; J3490; J7120

== ENCOUNTER 2020-08-07 07:37 | Outpatient (CLI) | payer BC ==
[2020-08-07 08:02] LABS: BASOPHILS # (AUTO) 0.1 10^3/uL (0.0-0.1); BASOPHILS % (AUTO) 0.7 %; EOSINOPHILS # (AUTO) 0.3 10^3/uL (0.0-0.7); EOSINOPHILS % (AUTO) 3.7 %; HGB - HEMOGLOBIN 13.5 g/dL (12.0-16.0); LYMPHOCYTES # (AUTO) 2.1 10^3/uL (1.5-3.5); LYMPHOCYTES % (AUTO) 29.4 %; MEAN CORPUSCULAR HEMOGLOBIN 29.9 pg (27.0-31.0); MEAN CORPUSCULAR HGB CONC 32.1 g/dL (32.0-36.0); MEAN CORPUSCULAR VOLUME 92.9 fL (81.0-99.0); MEAN PLATELET VOLUME 10.6 fL (7.9-10.8); MONOCYTES # (AUTO) 0.4 10^3/uL (0.0-1.0); MONOCYTES % (AUTO) 5.9 %; NEUTROPHILS # (AUTO) 4.4 10^3/uL (1.5-6.6); NEUTROPHILS % (AUTO) 59.9 %; PLT - PLATELET COUNT 232 10^3/uL (130-450); RED BLOOD COUNT 4.52 10^6/uL (4.20-5.40); WHITE BLOOD COUNT 7.3 x10^3/uL (4.8-10.8)
[2020-08-07 08:24] LABS: ALBUMIN 4.4 g/dL (3.2-5.5); ALBUMIN/GLOBULIN RATIO 1.3 (1.0-2.2); BILIRUBIN,TOTAL 0.5 mg/dL (0.2-1.0); CALCIUM 9.4 mg/dL (8.5-10.3); CREATININE 0.7 mg/dL (0.4-1.0); POTASSIUM 4.1 mmol/L (3.5-5.0); TOTAL PROTEIN 7.7 g/dL (6.7-8.2)
[2020-08-07 08:37] LABS: THYROID STIMULATING HORMONE 19.52 uIU/mL (0.34-5.60)
[2020-08-07 08:39] LABS: FREE T4 (FREE THYROXINE) 0.8 ng/dL (0.58-1.64)
[2020-08-07 08:40] LABS: FREE T3 3.23 pg/mL (2.5-3.9)
[2020-08-07 08:45] LABS: FERRITIN 13.4 ng/mL (11.0-306.8)
[2020-08-07 08:48] LABS: FOLATE 6.18 ng/mL (5.90 - >24.8)
[2020-08-07 12:43] LABS: ESTIMATED AVERAGE GLUCOSE 163 mg/dL (70-100); HEMOGLOBIN A1c% 7.3 % (4.27-6.07)
== END 2020-08-07 07:38 | disposition home or self-care (01) ==
LOC: LAB 07:37
PROVIDERS: ATTEND Family Medicine
DX: E11.9 Type 2 diabetes mellitus without complications (principal); R53.83 Other fatigue; K57.33 Diverticulitis of large intestine without perforation or abscess with bleeding; Z86.2 Personal history of diseases of the blood and blood-forming organs and certain disorders involving the immune mechanism; E03.9 Hypothyroidism, unspecified; K21.9 Gastro-esophageal reflux disease without esophagitis
CPT/HCPCS: 36415; 80053; 82607; 82728; 82746; 83036; 83540; 84439; 84443; 84466; 84481; 85025

== ENCOUNTER 2020-11-26 08:00 | Outpatient (CLI) | payer BC, OTHER | END 2020-11-26 23:59 | disposition home or self-care (01) | LOC: LAB.N 08:00 | PROVIDERS: ATTEND Physician Assistant Medical | DX: R30.0 Dysuria (principal) | CPT/HCPCS: 87077; 87086; 87181 ==

== ENCOUNTER 2021-02-18 08:00 | Outpatient (CLI) | payer OTHER ==
[2021-02-18 17:58] LABS: CREATININE,URINE 328.4 mg/dL; MICROALBUMIN,URINE 1.3 mg/dL (0-300.0)
[2021-02-18 17:59] LABS: CREATININE 0.7 mg/dL (0.4-1.0); POTASSIUM 3.9 mmol/L (3.5-5.0)
[2021-02-18 20:52] LABS: ESTIMATED AVERAGE GLUCOSE 197 mg/dL (70-100); HEMOGLOBIN A1c% 8.5 % (4.27-6.07)
== END 2021-02-18 23:59 | disposition home or self-care (01) ==
LOC: LAB.WCP 08:00
PROVIDERS: ATTEND Family Medicine
DX: G47.419 Narcolepsy without cataplexy (principal); R53.83 Other fatigue; E11.9 Type 2 diabetes mellitus without complications
CPT/HCPCS: 36415; 80048; 82043; 82570; 83036

== ENCOUNTER 2021-03-20 11:00 | Outpatient (CLI) | payer OTHER ==
--- NOTE | 2021-03-20 13:40 | XRAY Report ---
PROCEDURE: Shoulder 3 View RT INDICATIONS: R SHOULDER PX TECHNIQUE: 4 views of the shoulder were acquired. COMPARISON: None. FINDINGS: Bones: No fractures or dislocations. No suspicious bony lesions. Visualized ribs appear intact. Mo derate acromioclavicular joint osteophytic degenerative changes. Soft tissues: No suspicious soft tissue calcifications. IMPRESSION: Moderate right acromioclavicular joint osteoarthritis. Reviewed by: Jaqueline Mcdonald MD, PhD on 03/20/2021 1:39 PM PST Approved by: Jaqueline Mcdonald MD, PhD on 03/20/2021 1:39 PM PST Station ID: [id number]
== END 2021-03-20 23:59 | disposition home or self-care (01) ==
LOC: DI.N 11:00
PROVIDERS: ATTEND Orthopaedic Surgery
DX: M19.011 Primary osteoarthritis, right shoulder (principal)

== ENCOUNTER 2021-04-10 17:43 | Outpatient (CLI) | payer OTHER | END 2021-04-10 17:44 | disposition critical access hospital (66) | LOC: EMS 17:43 | DX: T14.90XA Injury, unspecified, initial encounter (principal); W22.09XA Striking against other stationary object, initial encounter; Y93.01 Activity, walking, marching and hiking; Y92.008 Other place in unspecified non-institutional (private) residence as the place of occurrence of the external cause | CPT/HCPCS: A0425; A0427 ==

== ENCOUNTER 2021-05-16 12:56 | Outpatient (CLI) | payer OTHER ==
[2021-05-16] MEDS ORDERED: ROPIVACAINE 0.5% PF 20 ML AMPULE ONE (13:13)
[2021-05-16] MEDS ORDERED: IOTHALAMATE MEGLUMINE 50 ML VIAL ONE (13:14)
[2021-05-16] MEDS ORDERED: lidocaine 1% 20 ML MDV ONE (13:14)
[2021-05-16] MEDS ORDERED: TRIAMCINOLONE 40 MG/ML VIAL ONE (13:15)
[2021-05-16] MEDS ORDERED: lidocaine 1% 20 ML MDV SUBQ ONE (14:38)
[2021-05-16] MEDS ORDERED: ROPIVACAINE 0.5% PF 20 ML AMPULE SUBQ STA (14:42)
[2021-05-16] MEDS ORDERED: IOTHALAMATE MEGLUMINE 50 ML VIAL IVP ONE (14:44)
[2021-05-16] MEDS ORDERED: TRIAMCINOLONE 40 MG/ML VIAL IM ONE (14:45)
--- NOTE | 2021-05-16 16:13 | XRAY Report ---
PROCEDURE: Inj/Aspiration Major Joint INDICATIONS: RIGHT ROTATOR CUFF SYNDROME CONTRAST: CONTRAST: CONRAY FLUORO TIME: FLUORO TIME: 0.3MIN and NUMBER IMAGES: 1 TECHNIQUE: The indications, alternatives, benefits, risks, and complications of the procedure were explained to the patient. Written informed consent was obtained and placed in the chart. The patient was placed in an appropriate position on the fluoroscopy table, and a site was chosen for percutaneous access [place] fluoroscopic guidance. Local anesthetic was administered using a 1% lidocaine solution. A hypod ermic or spinal needle was then used to access the symptomatic joint. Intra-articular location of th e needle tip was confirmed by injecting a small amount of contrast, followed by steroid administratio n. The needle was then withdrawn, and a bandage applied to the puncture site. FINDINGS: Joint injected: Right shoulder Medications injected: amount mL of 40 mg/mL Kenalog and 0.5% Ropivacaine mixture. Complications: None. IMPRESSION: Successful fluoroscopically guided administration of steroid and anaesthetic solution into the right shoulder joint. Reviewed by: Casper Bundy MD on 05/16/2021 4:11 PM PST Approved by: Casper Bundy MD on 05/16/2021 4:11 PM PST Station ID: [id number]
== END 2021-05-16 12:57 | disposition home or self-care (01) ==
LOC: DI 12:56
PROVIDERS: ATTEND Orthopaedic Surgery
DX: M75.101 Unspecified rotator cuff tear or rupture of right shoulder, not specified as traumatic (principal)
CPT/HCPCS: 20610; 77002; Q9961

== ENCOUNTER 2021-06-10 15:17 | Outpatient (CLI) | payer OTHER ==
[2021-06-10 15:33] LABS: BASOPHILS % (AUTO) 0.5 %; EOSINOPHILS # (AUTO) 0.3 10^3/uL (0.0-0.7); EOSINOPHILS % (AUTO) 3.3 %; HCT - HEMATOCRIT 42.2 % (37.0-47.0); LYMPHOCYTES # (AUTO) 2.9 10^3/uL (1.5-3.5); MEAN CORPUSCULAR HEMOGLOBIN 27.8 pg (27.0-31.0); MEAN CORPUSCULAR HGB CONC 30.8 g/dL (32.0-36.0); MEAN CORPUSCULAR VOLUME 90.4 fL (81.0-99.0); MEAN PLATELET VOLUME 10.4 fL (7.9-10.8); MONOCYTES # (AUTO) 0.5 10^3/uL (0.0-1.0); MONOCYTES % (AUTO) 6.5 %; NEUTROPHILS # (AUTO) 4.4 10^3/uL (1.5-6.6); NEUTROPHILS % (AUTO) 53.5 %; PLT - PLATELET COUNT 313 10^3/uL (130-450); RED BLOOD COUNT 4.67 10^6/uL (4.20-5.40); RED CELL DISTRIBUTION WIDTH 13.5 % (12.0-15.0); WHITE BLOOD COUNT 8.1 x10^3/uL (4.8-10.8)
[2021-06-10 15:47] LABS: CREATININE,URINE 196.9 mg/dL; MICROALBUM/CREATININE RATIO,UR 3.6 ug/mg (<30.0); MICROALBUMIN,URINE 0.7 mg/dL (0-300.0)
[2021-06-10 15:47] LABS: CALCIUM 9.2 mg/dL (8.5-10.3); CREATININE 0.7 mg/dL (0.4-1.0); POTASSIUM 4.1 mmol/L (3.5-5.0)
[2021-06-10 16:02] LABS: THYROID STIMULATING HORMONE 4.36 uIU/mL (0.34-5.60)
[2021-06-10 16:04] LABS: FREE T3 2.83 pg/mL (2.5-3.9); FREE T4 (FREE THYROXINE) 0.9 ng/dL (0.58-1.64)
[2021-06-10 19:59] LABS: ESTIMATED AVERAGE GLUCOSE 146 mg/dL (70-100); HEMOGLOBIN A1c% 6.7 % (4.27-6.07)
== END 2021-06-10 15:18 | disposition home or self-care (01) ==
LOC: LAB 15:17
PROVIDERS: ATTEND Family Medicine
DX: E11.65 Type 2 diabetes mellitus with hyperglycemia (principal); G47.419 Narcolepsy without cataplexy; E66.01 Morbid (severe) obesity due to excess calories; R53.83 Other fatigue; K21.9 Gastro-esophageal reflux disease without esophagitis; E03.9 Hypothyroidism, unspecified
CPT/HCPCS: 36415; 80048; 82043; 82570; 83036; 84439; 84443; 84481; 85025

== ENCOUNTER 2021-06-13 14:54 | Outpatient (CLI) | payer OTHER ==
[2021-06-13 16:05] VITALS: BP 128/72
--- NOTE | 2021-06-13 16:05 | SLEEP CARE CONSULTATION ---
Information from patient questionnaire entered by Rajiv Pineda MA. I have reviewed and concur with the information entered by Rajiv Pineda MA. This document represents the service I personally performed and the decisions made by , Adelia Otoole ARNP. History of Present Illness Service Date and Time: 06/13/2021 6504 Reason for Visit: New patient Chief Complaint: reports: Unrefreshed sleep, Snoring, Excessive daytime sleepiness, Fatigue Date of Onset: 1 YEAR Usual bedtime: AROUND 1000 Time it takes to fall asleep: 15 MINUTES Snores at night: Yes Observed to quit breathing while asleep: No Sleeps alone due to snoring: No Number of times waking at night: 3-4 Reasons for waking at night: reports: Pain, Bathroom. denies: Choking, Snoring, Gasping for air Toss, Turn, or Twitch while sleeping: No Recalls having dreams: Yes (SOMETIMES) Usually gets out of bed at: 0300 Feels refreshed in the morning: No Morning headache: Yes (almost every day, last until lunchtime or all day. history of migraines) Sleepy or fatigued during the day: Yes Ever fallen asleep while driving: No Takes day naps: Yes (SOMETIMES, not intentional; 5-10 minutes to 2 hours) Dreams during day naps: No Prior sleep studies: No Additional HPI information: I had the pleasure of seeing JENNI BARTHOLOMEW today regarding the possibility of her having a sleep disorder. Her current complaints are excessive daytime sleepiness and fatigue. She states she is tired all the time and if she sits down she will fall asleep quickly. If she stays busy she will not fall asleep. She will fall asleep 5-15 minutes after laying down to sleep at the end of her day. She is working different hours and taking care of her who has an amputation of a leg and her ddghst-ft-dea too. She also works a job. Her daytime fatigue seemed to be getting worse in the last year and her PCP thinks she has narcolepsy and started treating her with methylphenidate about 4 months ago. She feels it is making a difference in her level of daytime fatigue. She was sent here for further evaluation of her symptoms. 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 Patient is and lives in [place]. Have you smoked in the past 12 months: Yes Cigarettes per day (20/pack): 10 Years of smokin (2009) Smoking Pack Years: 10.0 Alcohol use: No Caffeine use: Yes Caffeine amount and frequency: 1-2 X DAILY Family History Family history of sleep disordered breathing: Yes Family Hx Sleep Apnea: Mother: Snoring, Father: Snoring, Sibling: Snoring, Sleep apnea - Treated Allergies and Home Medications Known drug allergies: Yes (PNC, BACTRIM) Drug allergies reviewed: Yes Home medication list reviewed: Yes Allergy and home medication list: Allergies cephalexin [From Keflex] Allergy (Verified 02/08/20 07:54) Unknown Penicillins Allergy (Verified 02/08/20 07:54) Anaphylaxis Medications: Methyphenidate Omeprazole Levothyroxine Glimepiride Liothyronine Review of Systems Weight gain over past 5 years: 15 Weight loss over past 5 years: 10 up and down Cardiovascular: denies: high blood pressure Gastrointestinal: reports: heartburn, diarrhea, abdominal pain Neurological: reports: headaches Psychiatric: reports: claustrophobia Ear/Nose/Throat: reports: sinus problems (sinus surgery), tonsillectomy, wisdom teeth removed Endocrine: reports: thyroid disease, too hot or cold Musculoskeletal: reports: joint pain, neck pain, back pain, muscle pain or cramping Physical Exam Vital signs obtained and entered by: WILFRED OLSEN Blood Pressure: 128/72 (RIGHT, PULSE 86, RESP 18, ) Cuff size: wrist Heart Rate: 84 O2 Saturation: 96 (PAPER MASK) Height: 5 ft 10 in Weight: 290 lb Body Mass Index: 41.5 BMI Classification: Morbidly Obese Neck circumference: 16.80 (inches) Mouth and throat: narrow oropharynx Soft palate: long Hard palate: normal Uvula: normal Uvula visualization: 50% Mallampati Class II Tongue: enlarged in size with teeth jin on lateral edges Tonsils: absent bilaterally Heart: regular rate and rhythm Lungs: clear bilaterally Impression and Plan 1. Suspected Obstructive Sleep Apnea-Hypopnea Syndrome, as suggested by a history of snoring, morning headache, unrefreshed sleep, and excessive daytime sleepiness. I recommend proceeding to polysomnography to confirm the diagnosis and to assess severity. If the patient has significant sleep disordered breathing, a manual CPAP titration study will also be performed to find the optimal treatment pressure. I informed the patient of what the sleep studies involve and after some discussion, obtained agreement to proceed. The pathophysiology of obstructive sleep apnea-hypopnea syndrome was discussed with the patient and health risks of cardiovascular and cerebrovascular disease if not treated. 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 Patient agreed to plan. * Schedule polysomnography +- manual CPAP titration study * Avoid long distance driving or driving when feeling sleepy. * Avoid alcohol, sedative and muscle relaxant around bedtime. * Attempt to lose weight. * Review instructions provided by trained office staff on how to prepare for the sleep study. * Return for follow-up after sleep study completed. Counseling Topics: Weight loss health impact Visit Type: In Office Time Spent with Patient (minutes): 30 Provider Statement: I spent 100% of the Face to Face Visit with the patient with greater than 50% spent counseling the patient and coordination of care.
== END 2021-06-13 14:55 | disposition home or self-care (01) ==
LOC: SC 14:54
PROVIDERS: ATTEND Nurse Practitioner Family
DX: G47.10 Hypersomnia, unspecified (principal); R51.9 Headache, unspecified; G47.8 Other sleep disorders; R06.83 Snoring; E66.01 Morbid (severe) obesity due to excess calories; Z68.41 Body mass index [BMI] 40.0-44.9, adult
CPT/HCPCS: 99203; 99212

== ENCOUNTER 2021-09-17 15:48 | Outpatient (CLI) | payer OTHER ==
--- NOTE | 2021-09-30 09:27 | MRI Report ---
PROCEDURE: Shoulder RT W/O INDICATIONS: RIGHT ROTATOR CUFF SYNDROME TECHNIQUE: Noncontrast oblique coronal T2 fast spin echo with fat saturation, oblique sagittal T1 spin echo and T2 fast spin echo with fat saturation, axial T1 spin echo and T2 fast spin echo with fat saturation t hrough the shoulder. COMPARISON: Shoulder radiograph dated 03/20/2021. FINDINGS: Image quality: Excellent. Rotator cuff: There is tendinosis and low to moderate grade articular and bursal surface partial-thic kness tear involving distal supraspinatus at its insertion on humeral head extending to musculotendin ous junction. Distal infraspinatus tendinosis is also seen. Low-grade partial-thickness tear involvin g superior fibers of distal subscapularis is also noted. No full-thickness rotator cuff tendon ruptur e. No significant rotator cuff muscle atrophy on sagittal images. Bones and bursae: No bone marrow contusions or fractures. Moderate acromioclavicular joint osteoarth ritic changes are seen with joint space narrowing, subchondral sclerosis and downward osteophyte form ation depressing on musculotendinous junction of supraspinatus. Small amount of subacromial subdeltoi d bursal fluid is seen. Capsule and soft tissues: There is subtle signal abnormality and contour irregularity involving super ior anterior labrum at 12 to 1:00 position. Degenerative changes are noted involving inferior labrum. The glenohumeral ligaments are intact. The long head of the biceps tendinosis and low-grade intrasub stance partial thickness tear is seen. The rotator interval appears normal, without fibrosis. The co racohumeral ligament is normal in thickness. IMPRESSION: 1. Low to moderate grade articular and bursal surface partial-thickness tear involving distal suprasp inatus extending to musculotendinous junction. Distal infraspinatus and subscapularis tendinosis. Low -grade partial-thickness tear involving superior fibers of distal subscapularis. No full-thickness ro tator cuff tendon rupture. No muscle atrophy. 2. Moderate acromioclavicular joint osteoarthritis. Small amount of subacromial subdeltoid bursal flu id. 3. Suggestion of superior anterior labral tear at 12 to 1:00 position. Degenerative changes involving inferior labrum. 4. Tendinosis and low-grade intrasubstance partial thickness tear involving proximal intra-articular portion of long head of biceps tendon. Reviewed by: Issa Warren MD on 09/30/2021 9:26 AM PDT Approved by: Issa Warren MD on 09/30/2021 9:26 AM PDT Station ID: [id number]
== END 2021-09-17 15:49 | disposition home or self-care (01) ==
LOC: DI 15:48
PROVIDERS: ATTEND Orthopaedic Surgery
DX: M75.111 Incomplete rotator cuff tear or rupture of right shoulder, not specified as traumatic (principal); M19.011 Primary osteoarthritis, right shoulder; S46.121A Laceration of muscle, fascia and tendon of long head of biceps, right arm, initial encounter

== ENCOUNTER 2021-11-01 08:25 | Outpatient (CLI) | payer OTHER ==
[2021-11-01 09:03] LABS: BASOPHILS # (AUTO) 0.1 10^3/uL (0.0-0.1); BASOPHILS % (AUTO) 0.8 %; EOSINOPHILS # (AUTO) 0.3 10^3/uL (0.0-0.7); EOSINOPHILS % (AUTO) 4.7 %; HCT - HEMATOCRIT 42.1 % (37.0-47.0); LYMPHOCYTES # (AUTO) 2.4 10^3/uL (1.5-3.5); LYMPHOCYTES % (AUTO) 37.4 %; MEAN CORPUSCULAR HEMOGLOBIN 26.7 pg (27.0-31.0); MEAN CORPUSCULAR HGB CONC 30.9 g/dL (32.0-36.0); MEAN CORPUSCULAR VOLUME 86.4 fL (81.0-99.0); MEAN PLATELET VOLUME 10.7 fL (7.9-10.8); MONOCYTES # (AUTO) 0.4 10^3/uL (0.0-1.0); MONOCYTES % (AUTO) 5.9 %; NEUTROPHILS # (AUTO) 3.3 10^3/uL (1.5-6.6); PLT - PLATELET COUNT 314 10^3/uL (130-450); RED BLOOD COUNT 4.87 10^6/uL (4.20-5.40); RED CELL DISTRIBUTION WIDTH 15.7 % (12.0-15.0); WHITE BLOOD COUNT 6.4 x10^3/uL (4.8-10.8)
[2021-11-01 09:14] LABS: ALBUMIN/GLOBULIN RATIO 1.3 (1.0-2.2); BILIRUBIN,TOTAL 0.5 mg/dL (0.2-1.0); CREATININE 0.7 mg/dL (0.4-1.0)
[2021-11-01 09:18] LABS: CREATININE,URINE 191.6 mg/dL; MICROALBUM/CREATININE RATIO,UR 3.7 ug/mg (<30.0); MICROALBUMIN,URINE 0.7 mg/dL (0-300.0)
[2021-11-01 09:31] LABS: THYROID STIMULATING HORMONE 1.46 uIU/mL (0.34-5.60)
[2021-11-01 09:33] LABS: FREE T3 3.01 pg/mL (2.5-3.9); FREE T4 (FREE THYROXINE) 1.1 ng/dL (0.58-1.64)
[2021-11-01 20:48] LABS: ESTIMATED AVERAGE GLUCOSE 137 mg/dL (70-100); HEMOGLOBIN A1c% 6.4 % (4.27-6.07)
== END 2021-11-01 08:26 | disposition home or self-care (01) ==
LOC: LAB 08:25
PROVIDERS: ATTEND Family Medicine
DX: I10 Essential (primary) hypertension (principal); G47.419 Narcolepsy without cataplexy; G47.33 Obstructive sleep apnea (adult) (pediatric); M75.101 Unspecified rotator cuff tear or rupture of right shoulder, not specified as traumatic; E11.9 Type 2 diabetes mellitus without complications; K21.9 Gastro-esophageal reflux disease without esophagitis; E03.9 Hypothyroidism, unspecified
CPT/HCPCS: 36415; 80053; 82043; 82570; 83036; 84439; 84443; 84481; 85025

== ENCOUNTER 2021-12-10 16:30 | Outpatient (CLI) | payer OTHER ==
--- NOTE | 2021-12-11 10:15 | Ultrasound Report ---
PROCEDURE: Pelvic w/Transvaginal INDICATIONS: IRREGULAR MENSTRUATION TECHNIQUE: Real-time scanning was performed of the pelvic organs, with image documentation. Additional endovagi nal scanning was necessary due to incomplete visualization of the adnexal and endometrial structures by transabdominal scanning. COMPARISON: None. FINDINGS: Uterus: Uterus is anteverted and normal in size at 4.9 x 4.9 x 7.5 cm. No uterine mass. Coarsened he terogenous uterine echotexture. Endometrium is normal in thickness and appearance. Ovaries: Normal size and appearance of both ovaries. No adnexal or ovarian mass. Other: No pathologic free abdominal or pelvic fluid. IMPRESSION: Coarsened uterine echotexture, nonspecific. No uterine mass. Normal appearance and thickness of the endometrium. Reviewed by: Brandon Hopson MD on 12/11/2021 10:14 AM PDT Approved by: Brandon Hopson MD on 12/11/2021 10:14 AM PDT Station ID: [id number]
== END 2021-12-10 16:31 | disposition home or self-care (01) ==
LOC: DI 16:30
PROVIDERS: ATTEND Nurse Practitioner Obstetrics & Gynecology
DX: N92.6 Irregular menstruation, unspecified (principal); N94.10 Unspecified dyspareunia

== ENCOUNTER 2021-12-16 13:53 | Emergency (ER) | payer OTHER ==
--- NOTE | 2021-12-16 14:06 | ED Physician Documentation ---
PD HPI DYSPNEA - Stated complaint Stated Complaint: SOB/RAPID HR/COUGH - History obtained from History obtained from: Patient - History of Present Illness Timing - onset: How many days ago (2-3) Timing - onset during: Light activity Timing - duration: Days Timing - details: Abrupt onset, Still present Inciting event(s): Other (pulled up old carpeting in room day prior and then cough and wheezing started the folowing day. No URI symptoms otherwise.). No: Out of meds, URI Improved by: Inhaler/neb (only moderate temporary improvement with MDI. Has used it 6 times so far today.) Worsened by: Coughing. No: Laying flat Associated symptoms: Cough, Wheezing. No: Fever, Hemoptysis, Chest pain / discomfort, Bilateral edema Similar symptoms before: Diagnosis (asthma infrequently) Recently seen: Not recently seen Review of Systems Constitutional: denies: Fever, Chills, Myalgias Nose: reports: Congestion. denies: Rhinorrhea / runny nose Throat: denies: Sore throat Cardiac: denies: Chest pain / pressure, Palpitations, Pedal edema, Calf pain Respiratory: reports: Dyspnea, Cough, Wheezing GI: denies: Vomiting, Diarrhea Skin: denies: Rash, Lesions Neurologic: reports: Generalized weakness. denies: Difficulty speaking, Near syncope PD PAST MEDICAL HISTORY - Past Medical History Cardiovascular: Other Respiratory: Asthma Neuro: Other Endocrine/Autoimmune: Type 2 diabetes, HyPOthyroidism GI: GERD, Diverticulitis : None HEENT: None Psych: None Musculoskeletal: None Derm: None - Past Surgical History General: Cholecystectomy, Colonoscopy Ortho: Arthroscopic surgery, Carpal Tunnel surgery HEENT: Tonsil/Adenoidectomy, Other - Present Medications Home Medications: Ambulatory Orders Medication Instructions Recorded Confirmed Levothyroxine Sodium [Synthroid] 150 mcg PO DAILY 02/08/20 02/08/20 Mesalamine [Canasa] 1,000 mg RC DAILY PM #30 supp.rect 02/08/20 Omeprazole 20 mg PO DAILY 02/08/20 02/08/20 Benzonatate [Tessalon] 100 mg PO TID PRN #20 cap 12/16/21 HYDROcod/ACETAM 5/325 [[place] 5/325] 1 ea PO Q6H PRN #15 tablet 12/16/21 dexAMETHasone [Decadron] 4 mg PO DAILY #5 tablet 12/16/21 - Allergies Allergies/Adverse Reactions: Allergies Allergy/AdvReac Type Severity Reaction Status Date / Time cephalexin [From Keflex] Allergy Unknown Verified 02/08/20 07:54 Penicillins Allergy Anaphylaxis Verified 02/08/20 07:54 - Social History Does the pt smoke?: No Smoking Status: Never smoker Does the pt drink ETOH?: No Does the pt have substance abuse?: No - Immunizations Immunizations are current?: Yes - POLST Patient has POLST: No PD ED PE NORMAL - Vitals Vital signs reviewed: Yes (sats 98% RA) - General General: Alert and oriented X 3, Well developed/nourished - HEENT HEENT: Moist mucous membranes, Pharynx benign - Neck Neck: Supple, no meningeal sign, No adenopathy - Cardiac Cardiac: RRR, No murmur - Respiratory Respiratory: No respiratory distress. No: Clear bilaterally (diffuse exp wheezing without coarse sounds. ) - Derm Derm: Normal color, Warm and dry, No rash - Extremities Extremities: Normal ROM s pain, No edema, No calf tenderness / cord - Neuro Neuro: Alert and oriented X 3, No motor deficit, Normal speech Results - Vitals Vitals: Oxygen O2 Source Room air - Rads (name of study) chest xray Radiology: Prelim report reviewed (chest without focal airspace abnormality. ), See rad report PD MEDICAL DECISION MAKING - ED course Complexity details: re-evaluated patient (improved significantly with neb treatment and meds. ), considered differential (environmental versus infectious URI exacerbating asthma/RAD. ), d/w patient Departure - Departure Disposition: 01 Home, Self Care Clinical Impression: Dyspnea Qualifiers: Dyspnea type: shortness of breath Qualified Code(s): R06.02 - Shortness of breath Exacerbation of RAD (reactive airway disease) Qualifiers: Asthma severity: mild Asthma persistence: intermittent Qualified Code(s): J45.21 - Mild intermittent asthma with (acute) exacerbation Condition: Stable Record reviewed to determine appropriate education?: Yes Instructions: ED Reactive Airway Disease Follow-Up: Pb Moulton MD [Primary Care Provider] - Prescriptions: dexAMETHasone [Decadron] 4 mg PO DAILY #5 tablet HYDROcod/ACETAM 5/325 [[place] 5/325] 1 ea PO Q6H PRN #15 tablet PRN Reason: Cough Benzonatate [Tessalon] 100 mg PO TID PRN #20 cap PRN Reason: Cough Comments: This sounds likely to be an irritation from environmental factors. Consideration could be a viral illness. It does not sound bacterial. Your COVID test is not resulted yet and should be resulted in the next couple of hours. He can look up the result on the patient portal. Alternatively if you prefer we can call you with the result. I would use your albuterol inhaler 2 to 3 puffs 4 times daily for the next several days to week. To that you can add benzonatate/Tessalon to help with cough. You can also add hydrocodone if needed for pain and/or cough suppression as well. To help with airway inflammation, also use Decadron steroid daily for 5 more days. I would anticipate improvement in continued improved breathing tonight into tomorrow and resolution over a few days. Recheck if not better in that timeframe and sooner if worse. If you develop symptoms such as some fever sore throat etc., it could also be that there is a viral component to this. No particular new treatment would be needed for that. I transmitted your prescriptions to [facility] pharmacy in [place]. I am prescribing a short course of narcotic pain medication for you. These are potentially dangerous and addictive medications that should be used carefully. These medications may constipate you. Take an rnnu-pbr-eveeign stool softener such as docusate twice daily with plenty of water while taking these medications. If you go 24 hours without a bowel movement, take blak-tht-qhtqava MiraLAX, per package instructions. Do not drink or drive while taking these medications. If you received narcotic or sedating medications while in the emergency department do not drive for 24 hours. Store this medication in a safe, secure place and out of reach of children. It is a violation of federal law to give or sell this medication to another person or to use in a manner other than prescribed. The ED will not refill narcotic prescriptions, including prescriptions lost or stolen. You can dispose of unwanted medications at the [facility]'s office or at several pharmacies such as [email or web address]. Discharge Date/Time: 12/16/21 16:27
[2021-12-16] MEDS ORDERED: IPRATROPIUM/ALBUTEROL 3 ML NEB INH STA (14:27)
[2021-12-16] MEDS ORDERED: CHERRY SYRUP 10 ML UDC PO ONE (14:28)
[2021-12-16] MEDS ORDERED: DEXAMETHASONE 10 MG/ML VIAL PO STA (14:28)
[2021-12-16] MEDS ORDERED: BENZONATATE 100 MG CAPSULE PO STA (14:28)
[2021-12-16] MEDS ORDERED: HYDROcod/ACETAM 5/325 MG TABLET PO STA (14:29)
[2021-12-16] MEDS ORDERED: KETOROLAC 30 MG/ML VIAL IM STA (14:29)
--- NOTE | 2021-12-16 14:51 | XRAY Report ---
PROCEDURE: Chest 1 View X-Ray INDICATIONS: cough and dyspnea TECHNIQUE: One view of the chest was acquired. COMPARISON: None FINDINGS: Surgical changes and devices: None. Lungs and pleura: No pleural effusions or pneumothorax. Lungs are clear. Mediastinum: Mediastinal contours appear normal. Heart size is normal. Bones and chest wall: No suspicious bony lesions. Overlying soft tissues appear unremarkable. IMPRESSION: Chest without acute cardiopulmonary abnormalities or focal airspace disease. Reviewed by: Theodore Armando MD on 12/16/2021 2:49 PM PDT Approved by: Theodore Armando MD on 12/16/2021 2:49 PM PDT Station ID: [id number]
[2021-12-16] MEDS ORDERED: ALBUTEROL NEB 2.5 MG/3 ML INH STA (15:43)
[2021-12-16 16:14] VITALS: BP 131/78
== END 2021-12-16 16:27 | disposition home or self-care (01) ==
LOC: ED 13:53
DX: J45.21 Mild intermittent asthma with (acute) exacerbation (principal); E11.9 Type 2 diabetes mellitus without complications
CPT/HCPCS: 71045; 94640; 96372; 99284; A9270; 87637

== ENCOUNTER 2022-02-04 06:21 | Day surgery (SDC) | payer OTHER ==
[~2022-02-04 06:21] MED LIST: CLINDAMYCIN 900 MG/50 ML 50 ML IV ONE
[2022-02-04] MEDS ORDERED: LACTATED RINGERS 1,000 ML IV ONE ×2 (06:25→11:04)
[2022-02-04 06:39] LABS: HCG UR QUAL NEGATIVE
[2022-02-04] MEDS ORDERED: EPINEPHrine 1 MG/ML AMP ONE (07:06)
[2022-02-04] MEDS ORDERED: PROPOFOL 200 MG/20 ML VIAL IVP ONE (07:12)
[2022-02-04] MEDS ORDERED: ROCURONIUM 50 MG/5 ML VIAL ONE ×2 (07:12→09:18)
[2022-02-04] MEDS ORDERED: fentaNYL 100 MCG/2 ML VIAL ONE ×3 (07:13→11:34)
[2022-02-04] MEDS ORDERED: MIDAZOLAM 2 MG/2 ML VIAL ONE (07:13)
[2022-02-04] MEDS ORDERED: ROPIVACAINE 0.5% PF 20 ML VIAL ONE ×2 (07:14→11:22)
[2022-02-04] MEDS ORDERED: DEXAMETHASONE 4 MG/ML VIAL ONE ×2 (07:14→09:11)
--- NOTE | 2022-02-04 07:15 | ANESTHESIA ---
Pre-Anesthesia VS, & Labs - Diagnosis right shoulder rotator cuff syndrome - Procedure right shoulder arthroscopic debridement and possible repair of rotator cuff Vital Signs: Temp Pulse Resp BP Pulse Ox O2 Flow Rate 36.3 C L 78 16 159/87 H 96 0 02/04/22 06:31 02/04/22 06:31 02/04/22 06:31 02/04/22 06:31 02/04/22 06:31 02/04/22 06:31 Height: 5 ft 9 in Weight (kg): 132 kg Body Mass Index: 43.0 BMI Classification: Morbidly Obese - NPO >8 hours - Is Patient ?: No - Lab Results Current Lab Results: Laboratory Tests 02/04/22 06:48: POC Whole Bld Glucose 123 H Home Medications and Allergies Home Medications: Ambulatory Orders Albuterol Sulfate [Proair Digihaler] 1 - 2 puffs IH Q4HR PRN 01/29/22 Glimepiride [Amaryl] 2 mg PO 0800 01/29/22 Glycopyrrolate 1 mg PO Q6HR PRN 01/29/22 Ibuprofen [Motrin] 600 mg PO Q6H PRN 01/29/22 Liothyronine [Cytomel] 5 mcg PO QDAC 01/29/22 Lisinopril [Zestril] 10 mg PO DAILY 01/29/22 Methylphenidate HCl 40 mg PO DAILY 01/29/22 Levothyroxine Sodium [Synthroid] 175 mcg PO DAILY 02/08/20 Omeprazole 20 mg PO DAILY 02/08/20 Albuterol Sulfate [Proair Digihaler] 1 - 2 puffs IH Q4HR PRN 01/29/22 Glimepiride [Amaryl] 2 mg PO 0800 01/29/22 Glycopyrrolate 1 mg PO Q6HR PRN 01/29/22 Ibuprofen [Motrin] 600 mg PO Q6H PRN 01/29/22 Liothyronine [Cytomel] 5 mcg PO QDAC 01/29/22 Lisinopril [Zestril] 10 mg PO DAILY 01/29/22 Methylphenidate HCl 40 mg PO DAILY 01/29/22 Allergies/Adverse Reactions: Allergies Allergy/AdvReac Type Severity Reaction Status Date / Time cephalexin [From Keflex] Allergy Unknown Verified 02/08/20 07:54 Penicillins Allergy Anaphylaxis Verified 02/08/20 07:54 Anes History & Medical History - Anesthetic History Anesthesia Complications: reports: Post-Operative Nausea/Vomiting - Medical History Cardiovascular: reports: Hypertension Pulmonary: reports: Asthma, Other (snores) Gastrointestinal: reports: GERD, Diverticulitis Urinary: reports: None Neuro: reports: Other Musculoskeletal: reports: None Endocrine/Autoimmune: reports: Type 2 diabetes, HyPOthyroidism Blood Disorders: reports: None Skin: reports: None Smoking Status: Never smoker Psychosocial: reports: No issues indicated History of Cancer?: No - Surgical History General: reports: Cholecystectomy, Colonoscopy, EGD Eyes Ears Nose Throat (EENT): reports: Tonsil/Adenoidectomy, Other Orthopedic: reports: Arthroscopic surgery, Carpal Tunnel surgery Exam General: Alert, Oriented x3, Cooperative, No acute distress Dental: WNL Mouth Openin Fingerbreadth Neck Mobility: Normal Mallampati classification: II Thyromental Distance: 4-6 cm Mental/Cognitive Status: Alert/Oriented X3, Normal for patient Plan Anesthesia Type: General, Supraclavicular Block (right) Regional Block: Per Surgeon's request for Post Op pain control Consent for Procedure(s) Verified and Reviewed: Yes Code Status: Attempt Resuscitation ASA classification: 3-Severe systemic disease Is this case an emergency?: No
[2022-02-04] MEDS ORDERED: ATROPINE ABBOJECT 1 MG/10 ML SYRINGE IVP PRN (07:17)
[2022-02-04] MEDS ORDERED: MORPHINE 2 MG/ML CARPUJECT IVP PRN (07:17)
[2022-02-04] MEDS ORDERED: ONDANSETRON 4 MG/2 ML VIAL IVP PRN (07:17)
[2022-02-04] MEDS ORDERED: HYDROmorphone 0.5 MG/0.5 ML SYRINGE IVP PRN (07:17)
[2022-02-04] MEDS ORDERED: NALOXONE 0.4 MG/ML VIAL IVP PRN (07:17)
[2022-02-04] MEDS ORDERED: LACTATED RINGERS 1,000 ML IV SCH (08:00)
[2022-02-04] MEDS ORDERED: SCOPOLAMINE PATCH TOP SCH (08:00)
[2022-02-04] MEDS ORDERED: TRANEXAMIC ACID 1,000 MG/10 ML VIAL ONE (08:24)
[2022-02-04] MEDS ORDERED: ONDANSETRON 4 MG/2 ML VIAL ONE ×2 (09:11→11:24)
[2022-02-04] MEDS ORDERED: ACETAMINOPHEN 1,000 MG/100 ML 1,000 MG/100 ML BAG IV ONE (09:21)
[2022-02-04] MEDS ORDERED: SUGAMMADEX 200 MG/2 ML VIAL IVP ONE (10:37)
[2022-02-04] MEDS ORDERED: HYDROmorphone 1 MG/ML CARPUJECT ONE (10:47)
--- NOTE | 2022-02-04 10:51 | OPERATIVE REPORT ---
Operative Report - General Procedure Date: 02/04/22 Planned Procedure: Arthroscopy right shoulder, possible repair rotator cuff and biceps tendon Pre-Op Diagnosis: Impingement tendinosis and bicipital tendinitis right shoulder Procedure Performed: Arthroscopy right shoulder, proximal biceps tenodesis using Arthrex loop and tack technique, subacromial debridement Post Op Diagnosis: Bicipital tendinosis right shoulder - Procedure Note Primary Surgeon: David Parr MD Secondary Surgeon: Mita RODRIGUEZ Anesthesia Provider: Lorraine Umanzor CRNA Anesthesia Technique: General ET tube, Regional block Estimated Blood Loss (mL): 25 Indications: This is a 46-year-old woman with diabetes, controlled, with chronic anterior right shoulder pain especially with lifting and above shoulder activity. She had tenderness directly over the biceps tendon, positive uppercut test, negative belly push, negative liftoff and negative bearhug test. Her MRI scan suggest some partial tearing on the bursal side and some tenosynovitis about the biceps tendon right shoulder. There were no complete tears of the rotator cuff or biceps tendon and her labrum showed minimal abnormality. Findings: Complete glenohumeral and subacromial arthroscopy was performed. The articular surface of the humeral head and glenoid appeared normal. The labrum was circumferentially intact with mild fraying of the superior labrum. The biceps tendon was intact but did show reddening and inflammation when the biceps was pulled into the joint with traction. The articular side of the rotator cuff was intact with an intact footprint and on subacromial arthroscopy the bursal side of the rotator cuff showed mild fraying but no tears. Complications: None - Other Other Information/Narrative: The patient was brought to the operating room and placed in the supine position. The patient was positioned onto a beachchair with appropriate headrest. The headrest was padded and the neck was placed in a neutral position. The patient was placed in a semisitting position and trimano arm positioner was utilized made by Arthrex.The right shoulder and right upper extremity were prepped and draped in sterile manner in the usual fashion. A timeout procedure had been performed by the entire operating room team and all were in agreement. The Capricor 4 mm 30 degree of black diagnostic arthroscope in conjunction with Capricor video camera was utilized. Inflow was brought through the arthroscope using Arthrex pump. The bony landmarks of the right shoulder were outlined with a sterile marking pen. A posterior portal was made and a blunt trocar was used to enter the joint for glenohumeral arthroscopy.. An anterior portal was made under direct visualization in the safe triangle somewhat to the superior and lateral aspects of the triangle. Visualization of the subscapularis did not show any sign of tear. The subscapularis was probed and a shuck test was applied to the humeral head to inspect the subscapularis. The biceps tendon was identified and pulled into the joint. There was tenosynovitis of the biceps tendon. The glenoid labrum Was intact with mild fraying at the superiormost aspect of the labrum.. A large cannula was inserted into the anterior portal. The glenoid labrum was minimally debrided with the radiofrequency probe . The periphery was intact. The biceps tendon was mobilized and a Arthrex suture was introduced around the biceps to provide a loop suture. This loop suture was placed in between the proximal end of the bicipital groove and the glenoid labrum. Below the loop suture, the tack suture was inserted to create double fixation. The biceps tendon was then released with a small radiofrequency probe proximally. A sharp awl was then used to make a bone tunnel at the junction of the subscapularis and supraspinatus. The punch was seated. Next the suture was taken through a swivel lock suture, 4.75 and fully seated as the biceps tendon was tensioned. This provided excellent fixation of the biceps tendon into bone. The arthroscope was then introduced into the subacromial space, again using the posterior portal. A lateral subacromial space portal was made. The bursa was partially debrided and an inspection of the rotator cuff was made. There was no identifiable tears to the rotator cuff. The rotator cuff was probed. The arthroscopy was terminated. Arthroscopic incision sites were closed with 3- 0 interrupted nylon, dry sterile dressing, sling. The patient tolerated procedure well. The patient received clindamycin 900 mg intravenously.The patient also received 1 g of tranexamic acid. A physician rehabilitation assistant was medically necessary to help with prepping and draping, positioning, protection of vital structures, assistance during the procedure including wound closure, dressing and/or splinting.
[2022-02-04] MEDS ORDERED: CELECOXIB 100 MG CAPSULE PO PRN (11:12)
[2022-02-04] MEDS ORDERED: ACETAMINOPHEN 500 MG TABLET PO PRN (11:12)
[2022-02-04] MEDS ORDERED: ONDANSETRON ODT 4 MG TABLET TL PRN (11:12)
[2022-02-04] MEDS ORDERED: oxyCODONE 5 MG TABLET PO PRN (11:12)
[2022-02-04] MEDS: fentaNYL 100 MCG/2 ML VIAL IVP PRN ×2 (11:37→11:50)
[2022-02-04] MEDS ORDERED: oxyCODONE 5 MG TABLET ONE (13:03)
--- NOTE | 2022-02-04 13:19 | ANESTHESIA PROCEDURE NOTE ---
Procedure: Right supraclavicular block Consent for Procedure(s) Verified and Reviewed: Yes Height and Weight: Height 5 ft 9 in Weight (kg) 132 kg Body Mass Index 43.0 Vital Signs: Temp Pulse Resp BP Pulse Ox O2 Flow Rate 36. C L 73 16 150/86 H 95 0 02/04/22 12:59 02/04/22 12:59 02/04/22 12:59 02/04/22 12:59 02/04/22 12:59 02/04/22 06:31 Allergies cephalexin [From Keflex] Allergy (Verified 02/08/20 07:54) Unknown Penicillins Allergy (Verified 02/08/20 07:54) Anaphylaxis Requesting Provider: Keshav Location: right ASA classification: 3-Severe systemic disease Is this case an emergency?: No Anes. Monitoring and Equipment: Non-invasive BP, Pulse oximetery, Sterile prep and drape Procedure Notes: While in recovery, pt c/o severe shoulder pain. Additional 10ml of 0.5% ropivicaine and 10ml of 2% lidocaine injected around the brachial plexus. Ultrasound used to guide needle into place. Image saved. After 10 mins, patient reports improved pain scores.
--- NOTE | 2022-02-04 13:20 | ANESTHESIA POST OP EVALUATION ---
Anesthesia Post Eval - Post Anesthesia Eval Vitals: Last Vital Signs Temp 36. C L 02/04/22 12:59 Pulse 73 02/04/22 12:59 Resp 16 02/04/22 12:59 BP 150/86 H 02/04/22 12:59 Pulse Ox 95 02/04/22 12:59 O2 Flow Rate 0 02/04/22 06:31 CV Function Including HR & BP: Stable Pain Control: Satisfactory Nausea & Vomiting: Negative Mental Status: Baseline Respiratory Status: Airway Patent Hydration Status: Satisfactory Anesthesia Complications: None - Other Details/Therapies Other Details/Therapies: Patient comfortable, eating and drinking. States her shoulder is numb.
[2022-02-04 13:43] VITALS: BP 158/100
== END 2022-02-04 06:22 | disposition home or self-care (01) ==
LOC: SDS 06:21
PROVIDERS: ATTEND Orthopaedic Surgery
DX: M75.21 Bicipital tendinitis, right shoulder (principal); M67.921 Unspecified disorder of synovium and tendon, right upper arm; J44.9 Chronic obstructive pulmonary disease, unspecified; G47.33 Obstructive sleep apnea (adult) (pediatric); E66.01 Morbid (severe) obesity due to excess calories; Z68.41 Body mass index [BMI] 40.0-44.9, adult; E11.9 Type 2 diabetes mellitus without complications; Z79.84 Long term (current) use of oral hypoglycemic drugs
CPT/HCPCS: 29828; 81025; A9270; C1713; J0131; J1170; J2795; J3490; J7120

== ENCOUNTER 2022-08-17 07:09 | Outpatient (CLI) | payer OTHER ==
[2022-08-17 12:54] LABS: BASOPHILS # (AUTO) 0.1 10^3/uL (0.0-0.1); BASOPHILS % (AUTO) 0.8 %; EOSINOPHILS # (AUTO) 0.2 10^3/uL (0.0-0.7); HCT - HEMATOCRIT 40.3 % (37.0-47.0); HGB - HEMOGLOBIN 12.5 g/dL (12.0-16.0); LYMPHOCYTES # (AUTO) 2.5 10^3/uL (1.5-3.5); LYMPHOCYTES % (AUTO) 38.7 %; MEAN CORPUSCULAR VOLUME 90.2 fL (81.0-99.0); MEAN PLATELET VOLUME 11.4 fL (7.9-10.8); MONOCYTES # (AUTO) 0.4 10^3/uL (0.0-1.0); MONOCYTES % (AUTO) 6.2 %; NEUTROPHILS # (AUTO) 3.4 10^3/uL (1.5-6.6); PLT - PLATELET COUNT 265 10^3/uL (130-450); RED BLOOD COUNT 4.47 10^6/uL (4.20-5.40); RED CELL DISTRIBUTION WIDTH 14.5 % (12.0-15.0); WHITE BLOOD COUNT 6.6 x10^3/uL (4.8-10.8)
[2022-08-17 13:12] LABS: BILIRUBIN,URINE NEGATIVE (NEGATIVE); GLUCOSE, URINE (UA) NEGATIVE (NEGATIVE); KETONES,URINE (UA) NEGATIVE (NEGATIVE); LEUKOCYTE ESTERASE, URINE NEGATIVE (NEGATIVE); NITRITE,URINE NEGATIVE (NEGATIVE); OCCULT BLOOD,URINE NEGATIVE (NEGATIVE); PROTEIN,URINE NEGATIVE (NEGATIVE); UROBILINOGEN,URINE 0.2 (NORMAL) E.U./dL (NORMAL)
[2022-08-17 13:14] LABS: CLARITY,URINE CLOUDY (CLEAR)
[2022-08-17 13:19] LABS: AMORPHOUS SEDIMENT,UR Moderate /LPF; BACTERIA,URINE Few /HPF (None Seen); RBC,URINE 0-5 /HPF (0-5); SQUAMOUS EPITHELIAL CELL,UR FEW Squamous (<= Few); WBC,URINE 0-3 /HPF (0-5)
[2022-08-17 14:09] LABS: THYROID STIMULATING HORMONE 1.57 uIU/mL (0.34-5.60)
[2022-08-17 14:10] LABS: FREE T3 2.98 pg/mL (2.5-3.9)
[2022-08-17 14:11] LABS: FREE T4 (FREE THYROXINE) 1.53 ng/dL (0.58-1.64)
[2022-08-17 14:14] LABS: ALBUMIN 4.1 g/dL (3.2-5.5); ALBUMIN/GLOBULIN RATIO 1.1 (1.0-2.2); ALKALINE PHOSPHATASE 116 IU/L (42-121); ALT ALANINE AMINOTRANSFERASE 30 IU/L (10-60); AST ASPARTATE AMINOTRANSFERASE 17 IU/L (10-42); BILIRUBIN,TOTAL 0.5 mg/dL (0.2-1.0); BUN - BLOOD UREA NITROGEN 22 mg/dL (6-20); CARBON DIOXIDE - CO2 26 mmol/L (21-32); CHLORIDE 106 mmol/L (101-111); CHOL/HDL RATIO 4.6 (<4.4); CHOLESTEROL 208 mg/dL; CREATININE 0.8 mg/dL (0.4-1.0); GFR - MDRD 77 (>89); GLUCOSE 116 mg/dL (70-100); HDL CHOLESTEROL 45 mg/dL; LDL CHOLESTEROL,CALCULATED 144 mg/dL; LDL/HDL RATIO 3.2 (<4.4); POTASSIUM 3.4 mmol/L (3.5-5.0); SODIUM 141 mmol/L (135-145); TOTAL PROTEIN 7.8 g/dL (6.7-8.2); TRIGLYCERIDES 95 mg/dL; VLDL CHOLESTEROL 19 mg/dL
[2022-08-17 14:23] LABS: ESTIMATED AVERAGE GLUCOSE 134 mg/dL (70-100); HEMOGLOBIN A1c% 6.3 % (4.27-6.07)
== END 2022-08-17 07:10 | disposition home or self-care (01) ==
LOC: LAB.N 07:09
PROVIDERS: ATTEND Family Medicine
DX: N23 Unspecified renal colic (principal); J44.9 Chronic obstructive pulmonary disease, unspecified; E11.9 Type 2 diabetes mellitus without complications; G47.419 Narcolepsy without cataplexy; G47.33 Obstructive sleep apnea (adult) (pediatric); K21.9 Gastro-esophageal reflux disease without esophagitis; E03.9 Hypothyroidism, unspecified
CPT/HCPCS: 36415; 80053; 80061; 81001; 83036; 83721; 84439; 84443; 84481; 85025; 87086

== ENCOUNTER 2023-04-09 17:09 | Outpatient (CLI) | payer OTHER ==
[2023-04-09 17:40] LABS: CALCIUM 9.4 mg/dL (8.5-10.3); CREATININE 0.6 mg/dL (0.6-1.3); POTASSIUM 3.4 mmol/L (3.5-4.5)
[2023-04-09 17:52] LABS: CREATININE,URINE 97.9 mg/dL; MICROALBUM/CREATININE RATIO,UR 7.2 ug/mg (<30.0); MICROALBUMIN,URINE 0.7 mg/dL
[2023-04-09 21:25] LABS: ESTIMATED AVERAGE GLUCOSE 143 mg/dL (70-100); HEMOGLOBIN A1c% 6.6 % (4.27-6.07)
== END 2023-04-09 17:10 | disposition home or self-care (01) ==
LOC: LAB 17:09
PROVIDERS: ATTEND Family Medicine
DX: E11.9 Type 2 diabetes mellitus without complications (principal)
CPT/HCPCS: 36415; 80048; 82043; 82570; 83036

== ENCOUNTER 2023-06-19 19:13 | Emergency (ER) | payer OTHER ==
[2023-06-19 19:35] LABS: BASOPHILS % (AUTO) 0.4 %; EOSINOPHILS # (AUTO) 0.2 10^3/uL (0.0-0.7); EOSINOPHILS % (AUTO) 2.5 %; HCT - HEMATOCRIT 42.8 % (37.0-47.0); LYMPHOCYTES # (AUTO) 2.9 10^3/uL (1.5-3.5); LYMPHOCYTES % (AUTO) 31.3 %; MEAN CORPUSCULAR HEMOGLOBIN 26.7 pg (27.0-31.0); MEAN CORPUSCULAR HGB CONC 30.4 g/dL (32.0-36.0); MEAN CORPUSCULAR VOLUME 87.9 fL (81.0-99.0); MEAN PLATELET VOLUME 10.2 fL (7.9-10.8); MONOCYTES # (AUTO) 0.6 10^3/uL (0.0-1.0); MONOCYTES % (AUTO) 6.4 %; NEUTROPHILS # (AUTO) 5.4 10^3/uL (1.5-6.6); PLT - PLATELET COUNT 292 10^3/uL (130-450); RED BLOOD COUNT 4.87 10^6/uL (4.20-5.40); RED CELL DISTRIBUTION WIDTH 14.5 % (12.0-15.0); WHITE BLOOD COUNT 9.1 x10^3/uL (4.8-10.8)
[2023-06-19 19:39] LABS: BILIRUBIN,URINE NEGATIVE (NEGATIVE); GLUCOSE, URINE (UA) NEGATIVE (NEGATIVE); KETONES,URINE (UA) NEGATIVE (NEGATIVE); LEUKOCYTE ESTERASE, URINE NEGATIVE (NEGATIVE); NITRITE,URINE NEGATIVE (NEGATIVE); OCCULT BLOOD,URINE NEGATIVE (NEGATIVE); PROTEIN,URINE NEGATIVE (NEGATIVE); UROBILINOGEN,URINE 0.2 (NORMAL) E.U./dL (NORMAL)
[2023-06-19 19:41] LABS: CLARITY,URINE CLEAR (CLEAR); HCG UR QUAL NEGATIVE
[2023-06-19 19:51] LABS: ALBUMIN 4.4 g/dL (3.2-5.5); ALBUMIN/GLOBULIN RATIO 1.3 (1.0-2.2); ALKALINE PHOSPHATASE 128 IU/L (42-121); ALT ALANINE AMINOTRANSFERASE 30 IU/L (10-60); AST ASPARTATE AMINOTRANSFERASE 18 IU/L (10-42); BILIRUBIN,TOTAL 0.5 mg/dL (0.2-1.0); BUN - BLOOD UREA NITROGEN 14 mg/dL (6-20); CALCIUM 9.6 mg/dL (8.5-10.3); CARBON DIOXIDE - CO2 28 mmol/L (21-32); CHLORIDE 102 mmol/L (101-111); CREATININE 0.7 mg/dL (0.6-1.3); GFR - MDRD 90 (>89); GLUCOSE 104 mg/dL (74-104); POTASSIUM 3.4 mmol/L (3.5-4.5); SODIUM 137 mmol/L (135-145); TOTAL PROTEIN 7.8 g/dL (6.4-8.9)
[2023-06-19 19:53] LABS: LIPASE < 10 U/L (11-82)
--- NOTE | 2023-06-19 20:39 | ED Physician Documentation ---
<KaelynBam A - Last Filed: 06/19/23 20:39> PD HPI ABD PAIN - Stated complaint Stated Complaint: ABD PX - Chief complaint Chief Complaint: Abd Pain PD PAST MEDICAL HISTORY - Past Medical History Past Medical History: Yes Cardiovascular: Hypertension Respiratory: Asthma, Other Neuro: Other Endocrine/Autoimmune: Type 2 diabetes, HyPOthyroidism GI: GERD, Diverticulitis : None HEENT: Chronic vision loss Psych: Claustrophobia Musculoskeletal: None Derm: None - Past Surgical History Past Surgical History: Yes General: Cholecystectomy, Colonoscopy, EGD Ortho: Arthroscopic surgery, Carpal Tunnel surgery HEENT: Tonsil/Adenoidectomy, Other - Present Medications Home Medications: Ambulatory Orders Medication Instructions Recorded Confirmed Levothyroxine Sodium [Synthroid] 175 mcg PO DAILY 02/08/20 05/01/23 Omeprazole 20 mg PO DAILY 02/08/20 05/01/23 Albuterol Sulfate [Proair 1 - 2 puffs IH Q4HR PRN 01/29/22 05/01/23 Digihaler] Glimepiride [Amaryl] 2 mg PO 0800 01/29/22 05/01/23 Glycopyrrolate 1 mg PO Q6HR PRN 01/29/22 05/01/23 Ibuprofen [Motrin] 600 mg PO Q6H PRN 01/29/22 05/01/23 Liothyronine [Cytomel] 5 mcg PO QDAC 01/29/22 05/01/23 Methylphenidate HCl 40 mg PO DAILY 01/29/22 05/01/23 Losartan Potassium 25 mg PO DAILY 05/01/23 05/01/23 Meclizine HCl [Motion Sickness] 25 mg PO Q6H PRN #20 tablet 05/01/23 Sumatriptan Succinate [Imitrex] 50 mg PO BID PRN #10 tablet 05/01/23 Ciprofloxacin HCl [Cipro] 500 mg PO BID #20 tablet 06/19/23 Ondansetron Odt [Zofran] 4 mg TL Q6H PRN #10 tablet 06/19/23 Oxycodone HCl/Acetaminophen 1 - 2 each PO Q6H PRN #14 tablet 06/19/23 [Percocet 5-325 mg Tablet] MDD 6 tabs metroNIDAZOLE [Flagyl] 500 mg PO Q8H #30 tablet 06/19/23 - Allergies Allergies/Adverse Reactions: Allergies Allergy/AdvReac Type Severity Reaction Status Date / Time cephalexin [From Keflex] Allergy Unknown Verified 06/19/23 19:19 Penicillins Allergy Anaphylaxis Verified 06/19/23 19:19 - Social History Does the pt smoke?: No Smoking Status: Never smoker Does the pt drink ETOH?: No Does the pt have substance abuse?: No - Immunizations Immunizations are current?: Yes - POLST Patient has POLST: No Departure - Departure Disposition: 01 Home, Self Care Clinical Impression: Diverticulitis Condition: Good Instructions: ED Diverticulitis Follow-Up: Pb Moulton MD [Primary Care Provider] - Within 1 week Prescriptions: Ciprofloxacin HCl [Cipro] 500 mg PO BID #20 tablet metroNIDAZOLE [Flagyl] 500 mg PO Q8H #30 tablet Oxycodone HCl/Acetaminophen [Percocet 5-325 mg Tablet] 1 - 2 each PO Q6H PRN #14 tablet MDD 6 tabs PRN Reason: pain Ondansetron Odt [Zofran] 4 mg TL Q6H PRN #10 tablet PRN Reason: Nausea / Vomiting Comments: Your prescriptions were [facility] in [place]. Please follow-up with your doctor for further care. You have acute diverticulitis of your sigmoid colon. Please return for increasing pain, fevers or other new or worrisome symptoms. Please take all antibiotics until gone even if you are feeling better. I am prescribing a short course of narcotic pain medication for you. These are potentially dangerous and addictive medications that should be used carefully. These medications may constipate you. Take an [id number] stool softener (docusate) twice daily with plenty of water while taking these medications. If you go 24 hours without a bowel movement, take [id number] miralax, per package instructions. Do not drink or drive while taking these medications. If you received narcotic or sedating medications while in the emergency department, do not drive for 24 hours. Store this medication in a safe, secure place and out of reach of children. It is a violation of federal law to give or sell this medication to another person or to use in a manner other than prescribed. The ED will not refill narcotic prescriptions, including prescriptions lost or stolen. To dispose of unwanted medications: 1. [facility] at [address] in [place] has a medication drop box. They accept prescription medications (in pill form) Wednesday through Wednesday 9:00 a.m. to 5:00 p.m. 2. The [facility] accepts prescription medications (in pill form only) for disposal year round. Call for more information. 3. Contact the [facility] for the next [facility] sponsored prescription drug collection event. , [phone], or [phone]; Forms: PCP List <Pelon Olmedo - Last Filed: 06/19/23 23:10> PD HPI ABD PAIN - History obtained from History obtained from: Patient - History of Present Illness Timing - onset: How many days ago (3) Timing - duration: Days (3) Pain level max: 8 Pain level now: 8 Quality: Aching, Pain Location: LLQ Associated symptoms: No: Vomiting, Hematemesis, Melena, Hematochezia, Dysuria, Hematuria - Additional information Additional information: 47-year-old female presents to the emergency department with left lower quadrant abdominal pain. This started a few days ago and has gradually worsened. Feels similar to prior episodes of diverticulitis. Worse with movement, better with rest. No blood in the stool. No diarrhea. Has had constipation for 4 days. Had subjective fever a few days ago. No urinary symptoms. Has had multiple colonoscopies in the past she states. No issues other than diverticulosis and diverticulitis. Review of Systems Constitutional: denies: Fever, Chills Respiratory: denies: Cough GI: reports: Constipation (No bowel movement x 4 days). denies: Vomiting, Diarrhea, Hematemesis, Bloody / black stool : denies: Dysuria, Frequency, Hesitancy Skin: denies: Rash Musculoskeletal: denies: Neck pain, Back pain Neurologic: denies: Headache PD PAST MEDICAL HISTORY - Past Medical History Past Medical History: Yes Cardiovascular: Hypertension Respiratory: Asthma Endocrine/Autoimmune: Type 1 diabetes, HyPOthyroidism GI: GERD, Diverticulitis : None HEENT: Chronic vision loss Psych: Claustrophobia - Past Surgical History Past Surgical History: Yes General: Cholecystectomy, Colonoscopy, EGD Ortho: Arthroscopic surgery, Carpal Tunnel surgery HEENT: Tonsil/Adenoidectomy - Living Situation Living Arrangement: reports: At home - Social History Does the pt smoke?: No Smoking Status: Never smoker Does the pt drink ETOH?: No Does the pt have substance abuse?: No PD ED PE NORMAL - Vitals Vital signs reviewed: Yes - General General: Alert and oriented X 3, No acute distress - HEENT HEENT: PERRL, Moist mucous membranes - Neck Neck: Supple, no meningeal sign - Cardiac Cardiac: RRR - Respiratory Respiratory: No respiratory distress, Clear bilaterally - Abdomen Abdomen: Soft, Non distended, Other (Tender to palpation left lower quadrant. No peritoneal signs.) - Derm Derm: Warm and dry - Extremities Extremities: No edema - Neuro Neuro: Alert and oriented X 3 - Psych Psych: Normal mood, Normal affect Results - Vitals Vitals: Vital Signs - 24 hr 06/19/23 06/19/23 19:17 21:17 Temperature 36.6 C Heart Rate 88 70 Respiratory 18 15 Rate Blood Pressure 202/95 H 157/77 H O2 Saturation 98 95 Oxygen O2 Source Room air - Labs Labs: Laboratory Tests 06/19/23 06/19/23 06/19/23 19:25 19:25 19:30 WBC 9.1 RBC 4.87 Hgb 13.0 Hct 42.8 MCV 87.9 MCH 26.7 L MCHC 30.4 L RDW 14.5 Plt Count 292 MPV 10.2 Neut # (Auto) 5.4 Lymph # (Auto) 2.9 [place] # (Auto) 0.6 Eos # (Auto) 0.2 Baso # (Auto) 0.0 Absolute Nucleated RBC 0.00 Nucleated RBC % 0.0 Sodium Potassium Chloride Carbon Dioxide Anion Gap BUN Creatinine Estimated GFR (MDRD) Glucose Calcium Total Bilirubin AST ALT Alkaline Phosphatase Total Protein Albumin Globulin Albumin/Globulin Ratio Lipase Urine Color YELLOW Urine Clarity CLEAR Urine pH 6.0 Ur Specific [place] 1.020 Urine Protein NEGATIVE Urine Glucose (UA) NEGATIVE Urine Ketones NEGATIVE Urine Occult Blood NEGATIVE Urine Nitrite NEGATIVE Urine Bilirubin NEGATIVE Urine Urobilinogen 0.2 (NORMAL) Ur Leukocyte Esterase NEGATIVE Ur Microscopic Review NOT INDICATED Urine Culture Comments NOT INDICATED Urine HCG, Qual NEGATIVE 06/19/23 19:30 WBC RBC Hgb Hct MCV MCH MCHC RDW Plt Count MPV Neut # (Auto) Lymph # (Auto) [place] # (Auto) Eos # (Auto) Baso # (Auto) Absolute Nucleated RBC Nucleated RBC % Sodium 137 Potassium 3.4 L Chloride 102 Carbon Dioxide 28 Anion Gap 7.0 BUN 14 Creatinine 0.7 Estimated GFR (MDRD) 90 Glucose 104 Calcium 9.6 Total Bilirubin 0.5 AST 18 ALT 30 Alkaline Phosphatase 128 H Total Protein 7.8 Albumin 4.4 Globulin 3.4 Albumin/Globulin Ratio 1.3 Lipase < 10 L Urine Color Urine Clarity Urine pH Ur Specific [place] Urine Protein Urine Glucose (UA) Urine Ketones Urine Occult Blood Urine Nitrite Urine Bilirubin Urine Urobilinogen Ur Leukocyte Esterase Ur Microscopic Review Urine Culture Comments Urine HCG, Qual - Rads (name of study) CT abd/pelvis Relevant Findings:: Final report received, See rad report PD Medical Decision Making - ED course Complexity details: reviewed results, re-evaluated patient, considered differential, d/w patient ED course: Patient is a 47-year-old female who presents to the emergency room with abdominal pain. Found to have acute sigmoid diverticulitis on CT scan. Patient has a penicillin allergy so Augmentin cannot be used. She is on lisinopril so Bactrim was avoided due to potential electrolyte issues. Discussed antibiotics versus watchful waiting with the patient. She elects antibiotic coverage we will place on Cipro and Flagyl. Counseled regarding risks of antibiotics including antibiotic associated diarrhea, C. difficile and black box warnings on the fluoroquinolones. Patient would still like to continue with antibiotics. We will place on pain medication and nausea medication for home as well. Will have her follow-up with her PCP for further care. Patient is well-appearing, nontoxic. Afebrile. Pain well-controlled here. Patient counseled regarding signs and symptoms for which I believe and urgent re-evaluation would be necessary. Patient with good understanding of and agreement to plan and is comfortable going home at this time This document was made in part using voice recognition software. While efforts are made to proofread this document, sound alike and grammatical errors may occur.
[2023-06-19] MEDS: HYDROmorphone 1 MG/ML CARPUJECT IVP STA (20:59)
[2023-06-19] MEDS ORDERED: iohexoL-300 100 ML VIAL ONE (21:05)
[2023-06-19] MEDS: ONDANSETRON 4 MG/2 ML VIAL IVP STA (21:35)
[2023-06-19 22:14] VITALS: O2SAT 95
[2023-06-19] MEDS: iohexoL-300 100 ML VIAL IVP ONE (22:46)
[2023-06-19] MEDS: metroNIDAZOLE 250 MG TABLET PO STA (22:57)
[2023-06-19] MEDS: CIPROFLOXACIN 250 MG TABLET PO STA (22:57)
--- NOTE | 2023-06-19 23:03 | CT Report ---
PROCEDURE: Abdomen/Pelvis W INDICATIONS: LLQ abd pain CONTRAST: Intravenous nonionic iodinated contrast, no oral contrast, 100 ML OMNI 300 TECHNIQUE: After the administration of intravenous contrast, a CT scan of the abdomen and pelvis was performed. Images were recorded and evaluated at appropriate window settings. Reformats: coronal and sagittal. F or radiation dose reduction, the following was used: automated exposure control, adjustment of mA and /or kV according to patient size. COMPARISON: CT abdomen/pelvis 12/23/2019.. FINDINGS: Image quality: Diagnostic. Lower chest: Unremarkable. Liver: No solid mass. Gallbladder and biliary tree: Prior cholecystectomy. Spleen: No splenomegaly. Pancreas: No pancreatic ductal dilation. Adrenals: No adrenal nodule. Kidneys and ureters: No hydronephrosis. No renal cystic lesion which requires follow up. No solid mas s. Stomach, bowel and peritoneum: No bowel distension. No pathologic free fluid. Lymph nodes: No central or retroperitoneal adenopathy. Vessels: No infrarenal aortic aneurysm. PELVIS Reproductive organs: Unremarkable. Bladder: No abnormal wall thickening, accounting for underdistention. Pelvic lymph nodes: No pelvic adenopathy by size criteria. Bones: No aggressive osseous abnormality. Other: No significant ventral or inguinal hernia. Note is made of pericolonic edema, acute in appeara nce, at the sigmoid colon. A peridiverticular abscess is not seen. IMPRESSION: Acute diverticulitis involving the sigmoid colon but without peridiverticular abscess or adjacent abn ormal free fluid. Prior cholecystectomy. Reviewed by: Esau Ku MD on 06/19/2023 11:01 PM PST Approved by: Esau Ku MD on 06/19/2023 11:01 PM PST Station ID: [id number]
[2023-06-20 00:28] VITALS: BP 147/92
== END 2023-06-19 23:20 | disposition home or self-care (01) ==
LOC: ED 19:13
DX: K57.32 Diverticulitis of large intestine without perforation or abscess without bleeding (principal); I10 Essential (primary) hypertension; E11.9 Type 2 diabetes mellitus without complications; Z79.84 Long term (current) use of oral hypoglycemic drugs
CPT/HCPCS: 36415; 74177; 80053; 81003; 81025; 83690; 85025; 96374; 96375; 99284; A9270; J1170; Q9967; 81001; 87086

== ENCOUNTER 2023-08-29 14:12 | Outpatient (CLI) | payer OTHER | END 2023-08-29 14:13 | disposition home or self-care (01) | LOC: LAB 14:12 | PROVIDERS: ATTEND Family Medicine | DX: E11.9 Type 2 diabetes mellitus without complications (principal) | CPT/HCPCS: 36415 ==

== ENCOUNTER 2023-10-14 11:23 | Outpatient (CLI) | payer OTHER | END 2023-10-14 11:24 | disposition home or self-care (01) | LOC: LAB 11:23 | PROVIDERS: ATTEND Orthopaedic Surgery Foot and Ankle Surgery | DX: E55.9 Vitamin D deficiency, unspecified (principal) | CPT/HCPCS: 36415; 82306 ==